=== PATIENT | female | born 1985 | race Two or more races ===

== ENCOUNTER 2022-10-24 11:07 | Outpatient (REF) | payer MEDICAID, OTHER, SELFPAY ==
[2022-10-24 15:02] LABS: Alanine Aminotransferase 14 U/L (0-31); Albumin Level 3.9 g/dL (3.5-5.0); Alkaline Phosphatase 44 U/L (39-117); Anion Gap 14 (12-20); Aspartate Amino Transferase 19 U/L (5-31); Bilirubin Total 0.5 mg/dL (0.0-1.0); Blood Urea Nitrogen 8 mg/dL (9-16); Calcium 8.7 mg/dL (8.4-10.2); Carbon Dioxide 22 mmol/L (22-29); Chloride 107 mmol/L (96-108); Cholesterol 260 mg/dL; Estimated Glomerular Filt Rate > 60; Glucose Random 85 mg/dL (60-115); HDL Cholesterol 76 mg/dL; LDL Cholesterol Calculated 164 mg/dl; Potassium 3.5 mmol/L (3.3-5.1); Sodium 139 mmol/L (135-145); Total Protein 7.1 g/dL (6.5-8.0); Triglycerides 103 mg/dL
[2022-10-24 16:06] LABS: TSH reflex Free T4 > 100.00 uIU/mL (0.32-4.0)
[2022-10-24 16:55] LABS: Free T4 (Free Thyroxine) < 0.42 ng/dL (0.71-1.85)
== END 2022-10-24 11:08 | disposition home or self-care (01) ==
LOC: HO.HHCL 11:07
PROVIDERS: Visit Provider Internal Medicine
DX: E89.0 Postprocedural hypothyroidism (principal); R73.01 Impaired fasting glucose
CPT/HCPCS: 36415; 80053; 80061; 84439; 84443

== ENCOUNTER 2022-12-22 09:30 | Outpatient (REF) | payer MEDICAID, OTHER, SELFPAY ==
[2022-12-22 14:33] LABS: MANUAL DIFF FLAG NO
[2022-12-22 14:44] LABS: Basophils Percent Auto 0.3 % (0-2); Eosinophils Absolute Auto 0.2 X10*3/uL (0.0-0.4); Eosinophils Percent Auto 2.5 % (0-4); Hematocrit 37.5 % (37.0-47.0); Hemoglobin 11.6 g/dl (12.0-16.0); Imm Gran Abs Auto 0.01 X10*3/uL (0.00-0.03); Imm Gran Pct Auto 0.2 % (0.0-0.4); Lymphocytes Percent Auto 30.4 % (20-40); Mean Corpuscular HGB Conc 30.9 g/dl (31.0-35.0); Mean Corpuscular Hemoglobin 28.7 pg (27.0-33.0); Mean Corpuscular Volume 92.8 fL (80.0-98.0); Mean Platelet Volume 10.6 fL (9.4-12.3); Monocytes Absolute Auto 0.6 X10*3/uL (0.1-1.2); Monocytes Percent Auto 9.5 % (2-11); Neutrophils Absolute Auto 3.7 x10*3/uL (2.0-8.3); Neutrophils Percent Auto 57.1 % (45-73); Platelet Count 311 X10*3/uL (160-400); Red Blood Count 4.04 X10*6/uL (4.20-5.50); Red Cell Distribution Width 13.2 % (11.0-16.0); White Blood Count 6.4 X10*3/uL (4.8-10.8)
[2022-12-22 14:57] LABS: Estimated Average Glucose 97 mg/dL
[2022-12-22 15:26] LABS: TSH reflex Free T4 0.31 uIU/mL (0.32-4.0); Vitamin D 25-OH Total 27.3 ng/mL (>30)
[2022-12-22 16:08] LABS: Free T4 (Free Thyroxine) 1.03 ng/dL (0.71-1.85)
== END 2022-12-22 09:31 | disposition home or self-care (01) ==
LOC: HO.CHCLDS 09:30
PROVIDERS: Visit Provider Pediatrics
DX: E89.0 Postprocedural hypothyroidism (principal); C73 Malignant neoplasm of thyroid gland; K90.9 Intestinal malabsorption, unspecified; R19.7 Diarrhea, unspecified
CPT/HCPCS: 36415; 82306; 83036; 84439; 84443; 85025

== ENCOUNTER 2023-03-24 16:43 | Outpatient (REF) | payer MEDICAID, OTHER, SELFPAY ==
--- NOTE | ~2023-03-24 | US_ITS ---
EXAMINATION: US PELVIS CLINICAL INFORMATION: Follow-up left ovarian cyst. COMPARISON: None available. TECHNIQUE: Ultrasound of the pelvis is performed using both transabdominal and transvaginal transducers along with Doppler. Transvaginal imaging is performed due to inadequate visualization transabdominally. FINDINGS: The uterus measures 8.9 x 5.4 x 5.4 cm. No discrete fibroids are appreciated. Possible cervical polyp measures 2.1 x 0.5 x 0.6 cm. No significant free fluid in the pelvis. Small amount of fluid within the endometrial cavity. Double wall endometrial thickness of 1.3 cm. Left ovary measures 2.0 x 1.7 x 1.9 cm, volume 3.4 mL and is unremarkable. Right ovary measures 2.6 x 2.0 x 2.4 cm, volume 6.5 mL. Right ovarian 1.3 x 1.1 x 1.0 cm complex cyst, possibly a corpus luteum. US/US pelvic and transvaginal IMPRESSION: 1. Possible cervical polyp measures 2.1 x 0.5 x 0.6 cm. 2. Right ovarian 1.3 cm complex cyst, possibly a corpus luteum. 3. Recommend follow-up ultrasound in 6-8 weeks. 4. Gynecologic consultation and correlation with menstrual history recommended to determine further management including possible biopsy. This study was presented Saturday, March 25, 2023 at 1:00 PM for interpretation. PSA staff will provide results to referring provider at this time.
== END 2023-03-24 16:44 | disposition home or self-care (01) ==
LOC: HO.US 16:43
PROVIDERS: PCP Pediatrics; Visit Provider Pediatrics
DX: N83.291 Other ovarian cyst, right side (principal)
CPT/HCPCS: 76830; 76856

== ENCOUNTER 2023-08-14 15:14 | Outpatient (REF) | payer MEDICAID, OTHER, SELFPAY ==
[2023-08-14 18:09] LABS: MANUAL DIFF FLAG NO
[2023-08-14 18:20] LABS: Basophils Percent Auto 0.3 % (0-2); Eosinophils Absolute Auto 0.2 X10*3/uL (0.0-0.4); Eosinophils Percent Auto 2.8 % (0-4); Hematocrit 36.4 % (37.0-47.0); Hemoglobin 11.9 g/dl (12.0-16.0); Imm Gran Abs Auto 0.02 X10*3/uL (0.00-0.03); Imm Gran Pct Auto 0.3 % (0.0-0.4); Lymphocytes Absolute Auto 2.4 X10*3/uL (1.2-4.9); Lymphocytes Percent Auto 31.7 % (20-40); Mean Corpuscular HGB Conc 32.7 g/dl (31.0-35.0); Mean Corpuscular Volume 88.6 fL (80.0-98.0); Mean Platelet Volume 10.2 fL (9.4-12.3); Monocytes Absolute Auto 0.5 X10*3/uL (0.1-1.2); Monocytes Percent Auto 7.2 % (2-11); Neutrophils Absolute Auto 4.3 x10*3/uL (2.0-8.3); Neutrophils Percent Auto 57.7 % (45-73); Platelet Count 299 X10*3/uL (160-400); Red Blood Count 4.11 X10*6/uL (4.20-5.50); Red Cell Distribution Width 13.4 % (11.0-16.0); White Blood Count 7.5 X10*3/uL (4.8-10.8)
[2023-08-14 18:28] LABS: Rheumatoid Factor < 13.0 IU/mL (<15.0)
[2023-08-14 18:34] LABS: Alanine Aminotransferase 13 U/L (0-31); Albumin Level 3.9 g/dL (3.5-5.0); Alkaline Phosphatase 49 U/L (39-117); Aspartate Amino Transferase 15 U/L (5-31); Bilirubin Direct 0.1 mg/dL (0.0-0.5); Bilirubin Total 0.3 mg/dL (0.0-1.0); C Reactive Protein 0.27 mg/dL (< or = 0.50); Total Protein 7.2 g/dL (6.5-8.0)
[2023-08-14 18:53] LABS: Thyroid Stimulating Hormone 1.09 uIU/mL (0.32-4.0)
[2023-08-14 19:31] LABS: Erythrocyte Sedimentation Rate 22 MM/HR (0-20)
[2023-08-15 09:40] LABS: Triiodothyronine T3 Total 97 ng/dL (76-181)
[2023-08-17 14:22] LABS: Anti Nuclear Antibody Screen NEGATIVE (NEGATIVE)
== END 2023-08-14 15:15 | disposition home or self-care (01) ==
LOC: HO.CHCLDS 15:14
PROVIDERS: Visit Provider Pediatrics
DX: C73 Malignant neoplasm of thyroid gland (principal); M25.50 Pain in unspecified joint
CPT/HCPCS: 36415; 80076; 84443; 84480; 85025; 85652; 86038; 86140; 86431

== ENCOUNTER 2024-11-24 09:49 | Outpatient (REF) | payer MEDICAID, OTHER, SELFPAY ==
--- NOTE | ~2024-11-24 | XR_ITS ---
EXAMINATION: XR SHOULDER, RIGHT CLINICAL INFORMATION: chronic R shoulder pain COMPARISON: None available. TECHNIQUE: AP external rotation, Grashey, scapular Y, and axillary views of the right shoulder. FINDINGS: Normal bone mineralization. No fracture, dislocation, or suspicious bone lesion. Normal alignment. The glenohumeral joint is normal. The AC joint is normal. There is a type II acromion. No undersurface spurring. The subacromial space is preserved. Remainder of the soft tissue and bony structures appear normal. XR/XR shoulder RT min 2V IMPRESSION: Normal right shoulder. Electronically signed by: Titi Aquino MD 11/24/2024 10:48 AM EDT
--- NOTE | ~2024-11-24 | XR_ITS ---
EXAMINATION: XR CERVICAL SPINE CLINICAL INFORMATION: chronic shoulder pain COMPARISON: None available. TECHNIQUE: 3 views of the cervical spine were obtained. FINDINGS: There are no prevertebral soft tissue or bony abnormalities demonstrated. No compression fractures or subluxations are identified. No endplate changes are seen. Alignment is maintained at the atlanto-axial articulation. The disc spaces are preserved. Normal facet alignment and appearance. The prevertebral soft tissues are normal. XR/XR cervical spine 3V IMPRESSION: Normal radiographs of the cervical spine. Electronically signed by: Titi Aquino MD 11/24/2024 10:49 AM EDT
--- OUTSIDE RECORDS SUMMARY | 2024-11-24 09:00 | XMS_ITS | Encounter Summary ---
Author Organization [employer] Address [address] [place] [address] [address] [place] [address] Care Team Providers Care Carport Erector Name Role Phone Chary Silva MD Primary Care Provider [phone] Reason for Referral * PFT (Routine) - Authorized Specialty Diagnoses / Procedures Referred By Kristen lambert Referred To Contact Diagnoses Childhood asthma, mild intermittent, uncomplicated Procedures Pulmonary Function Test Chary Silva MD [address] [place] [address] Phone: tel: fax: [address] Phone: tel: fax: Referral ID Status Reason Start Date Expiration Date V isits Requested Visits Authorized [id number] Authorized 11/24/2024 11/24/2025 1 1 Encounter Details Date Type Department Care Team (Late st Contact Info) Description 11/24/2024 9:00 AM EDT Office Visit [facility] CHC MED & PEDS [address] [place] [address] Chary Silva MD [address], [place] [id number] Chronic right shoulder pain (Primary Dx); Childhood asthma, mild intermittent, uncomplicated; Dietary counseling; Exercise counseling; Vitamin D deficiency; Thyroid cancer (CMS/HCC) Social History Tobacco Use Types Packs/Day Years Used Date Smoking Tobacco: Former Cigarettes Passive Smoke Exposure: Never Smokeless Tobacco: Never Alcohol Use Standard Drinks/Week Comments Defer 0 (1 standard drink = 0.6 oz pur e alcohol) Alcohol Answer Date Recorded Frequency of Alcohol Consumption Not on file 12/18/2022 Average Number of Drinks Not on file 023 Frequency of Binge Drinking Not on file 11/22 Score 0 12/18/2022 Depression Answer Date Recorded Patient Health Questionnaire-9 Score 6 11/24/2024 Patient Health Questionnaire-9 Score 6 11/24/2024 Last PHQ-9: Questionnaire Data Not on file 0 11/24/2024 Housing Stability Answer Date Recorded What is your housing situation today? I have renay hebert 11/24/[address] you li ve. Do you have problems with any of the following? None of the above 11/24/2024 Food Insecurity Answer Date Recorded Within the past 12 months, y ou worried that your food would run out before you got money to buy more: Sometimes True 2024 Within the past 12 months,th e food you bought just didn't last and you didn't have enough money to get more: Sometimes True 11/24/2024 Transportation Answer Date Recorded In the past 12 months, has l ack of transportation kept you from medical appts, meetings, work or from getting things needed for daily living? Yes, it has kept me from medical appointments or getting medications. 11/24/2024 Utilities Answer Date Recorded In the past 12 months, has t he electric, gas, oil or water company threatened to shut off services in your home? Yes 11/24/2024 Depression Answer Date Recorded Patient Health Questionnaire-2 Score 1 11/24/2024 Internet Access Answer Date Recorded Internet Access Q1 Yes 11/24/2024 Internet Access Q2 Not on file 11/24/2024 Comments No Sex and Gender Information Value Date Recorded Sex Assigned at Female 10/24/2022 9:31 AM EDT Legal Sex Female 9:27 AM EDT Gender Identity Female 10/24/2022 9:31 AM EDT Sexual Orientation Straight 10/24/2022 9: 31 AM EDT documented as of this encounter Last Filed Vital Signs Vital Sign Reading Time Taken Comments Blood Pressure 112/76 11/24/2024 8:48 AM EDT Pulse 76 11/24/2024 8:48 AM EDT Temperature 37.1 C (98.7 F) 11/24/2024 8:48 AM EDT Respiratory Rate 20 11/24/2024 8:48 AM EDT Oxygen Saturation - - Inhaled Oxygen Concentration - - Weight 84.8 kg (187 lb) 11/24/2024 8:48 AM EDT Height 165.1 cm (5' 5 ) 11/24/2024 8:48 AM EDT Body Mass Index 31.12 11/24/2024 8:48 AM EDT documented in this encounter Functional Status * Over the past 2 weeks, how often have you been bothered by any of the following problems? Question Answer Date of Assessment Author Patient Health Questionnaire-2 Score 1 06/2024 9:15 AM Betsy Gregory MA * Little interest or pleasure in doing things Answer Date of Assessment Author Several days 11/24/2024 9:15 AM Adenike Gregory MA * Feeling down, depressed, or hopeless Answer Date of Assessment Author Not at all 11/24/2024 9:15 AM Adenike Gregory MA * Trouble falling or staying asleep, or sleeping too much Answer Date of Assessment Author Several days 11/24/2024 9:15 AM Adenike Gregory MA * Feeling tired or having little energy Answer Date of Assessment Author Several days 11/24/2024 9:15 AM Adenike Gregory MA * Poor appetite or overeating Answer Date of Assessment Author Several days 11/24/2024 9:15 AM Adenike Gregory MA * Feeling bad about yourself - or that you are a failure or have let yourself or your family down Answer Date of Assessment Author Not at all 11/24/2024 9:15 AM Adenike Gregory MA * Trouble concentrating on things, such as reading the newspaper or watching television Answer Date of Assessment Author More than half the days 11/24/2024 9:15 AM LINDSEYT Betsy Washington MA * Moving or speaking so slowly that other people could have noticed? Or the opposite - being so fidgety or restless that you have been moving around a lot more than usual. Answer Date of Assessment Author Not at all 11/24/2024 9:15 AM Adenike Gregory MA * Thoughts that you would be better off or hurting yourself in some way Answer Date of Assessment Author Not at all 11/24/2024 9:15 AM EDT Adenike Solares MA * Patient Health Questionnaire-9 Score Answer Date of Assessment Author 6 11/24/2024 9:15 AM EDT Adenike Solares MA * How difficult have these problems made it for you to do your work, take care of things at home, or get along with other people? Answer Date of Assessment Author Not difficult at all 11/24/2024 9:15 AM EDT Betsy Cottrell MA documented as of this encounter Plan of Treatment Upcoming Encounters Date Type Department Care Team (Late st Contact Info) Description 03/06/2025 8:00 AM EST Office Visit [facility] CHC ADULT DENTAL [address] [facility] [place] [address] Ashley Gooden Scheduled Orders Name Type Priority Associated Diagnoses Orde r Schedule XR CERVICAL SPINE 3V Imaging Routine Chronic right shoulder pain Expected: 11/24/2024, Expires: 11/24/2025 XR Shoulder 2+ Views Right Imaging Routine Chronic right shoulder pain Expected: 11/24/2024, Expires: 11/24/2025 Pulmonary Function Test PFT Routine Childhood asthma, mild intermittent, uncomplicated Expected: 11/24/2024, Expires: 05/24/2025 documented as of this encounter Visit Diagnoses Diagnosis Chronic right shoulder pain- Primary Pain in joint, shoulder region Childhood asthma, mild intermittent, uncomplicated Dietary counseling Dietary surveillance and counseling Exercise counseling Vitamin D deficiency Thyroid cancer (CMS/HCC) Malignant neoplasm of thyroid gland documented in this encounter Additional Health Concerns Assessment Noted Time PHQ-9 Depression Total Score: 6 11/25/19 25 9:15 AM EDT documented as of this encounter Care Teams Carport Erector Relationship Specialty Start Date End Date Chary Silva MD [address] [place] [address] PCP - General Internal Medicine 12/18/22 documented as of this encounter
--- OUTSIDE RECORDS SUMMARY | 2024-11-24 10:46 | XMS_ITS | Clinical Summary ---
Author Organization [employer] Address [address] [facility] [address] [place] [address] Care Team Providers Care See Supervisor Name Role Phone Chary Silva MD Primary Care Provider [phone] Allergies No known active allergies Medications cholecalciferol (Vitamin D-3) 50 MCG (1999) capsule Take 1 capsule (50 mcg) by mouth Once per day. 30 capsule 11 08/13/19 24 Active Additional Information Patient not taking.Reported on 09/01/2024 Levonorgestrel 20 MCG/DAY intrauterine device 1 each by Intrauterine route 1 (one) time. Active levothyroxine (Synthroid, Levoxyl) 112 MCG tablet Take 1 tablet by mouth Once per day. 10/22/19 25 Active lidocaine-priloca ine (Emla) 2.5-2.5 % cream Apply topically bid to effected areas 30 g 2 11/25/19 25 Active meloxicam (Mobic) 7.5 MG tablet Take 1 tablet (7.5 mg) by mouth Once per day. 30 tablet 3 11/25/19 25 026 Active albuterol 108 (90 Base) MCG/ACT inhaler Inhale 2 puffs every 6 (six) hours if needed for wheezing. 18 g 1 11/25/19 25 026 Active cholestyramine (Questran) 4 g packetIndications :Diarrhea due to malabsorption Take 1 packet (4 g) by mouth with breakfast and with evening meal. 60 packet 3 12/19/19 23 025 Discontin ued(Thera py completed ) levothyroxine (Synthroid, Levoxyl) 125 MCG tablet TAKE 1 TABLET BY MOUTH BEFORE BREAKFAST 90 tablet 1 10/12/19 25 025 Discontin ued(Thera py completed ) Active Problems Problem Noted Date Diagnosed Date Hypocalcemia 10/22/2023 Vitamin D deficiency 02/05/2023 Postoperative hypothyroidism 10/24/2022 Assessment & Plan (10/24/2022 1:28 PM EDT): Restart Levothyroxine 75 mcg/d x 3d then increase to the regular dose of 150 mcg/d and fu with PCP Order labs today. PCP may need to obtain records form previous provider [place]. Thyroid cancer 10/24/2022 Assessment & Plan (10/24/2022 1:28 PM EDT): Sp thyroidectomy, will need to bring info re previous PCP records. Restart levothyroxine as above IFG (impaired fasting glucose) 10/24/2022 Assessment & Plan (10/24/2022 1:27 PM EDT): Order FBS, may need A1c by PCP if high. Counseled re more frequent low calorie/carb meals. Encouraged physical activity as tolerated. FU w PCP Recurrent major depressive disorder, in partial remission 10/24/2022 Assessment & Plan (10/24/2022 1:29 PM EDT): For few years no, was doing well on meds. Restart sertraline 25mg And fu w PCP to titrate up if tolerated. Declines referral to counselor. She feels safe at home and will call back or come to [facility] prn. Screening mammogram for breast cancer 10/24/2022 Assessment & Plan (10/24/2022 1:30 PM EDT): Mother has hx breast Ca. Order mammogram and fu w PCP Diarrhea due to malabsorption 10/24/2022 Assessment & Plan (10/24/2022 1:25 PM EDT): Sp [facility] few years ago Rx Cholestyramine 4mg bid ac meals, avoid fat foods. FU w PCP may need addtl w/u if not improving. Encounters Date Type Department Care Team Description 11/24/2024 9:00 AM EDT Office Visit [facility] CHC MED & PEDS [address] [place] [address] Chary Silva MD Chronic right shoulder pain (Primary Dx); Childhood asthma, mild intermittent, uncomplicated; Dietary counseling; Exercise counseling; Vitamin D deficiency; Thyroid cancer ([facility]) 11/24/2024 Travel 11/22/2024 Telephone [facility] MED & PEDS [address] [place] [address] Chary Silva MD Chart Prep 10/31/2024 Orders Only [facility] MED & PEDS [address] [place] [address] Minerva Yip MD 10/11/2024 Refill [facility] MED & PEDS [address] [place] [address] Chary Silva MD 09/15/2024 Orders Only [facility] [address] [place] [address] Minerva Yip MD 09/13/[address] [facility] MEDICINE [address] [place] [address] Chary Silva MD Medication Question 09/01/2024 8:00 AM EDT Office Visit [facility] ADULT DENTAL [address] [place] [address] Ashley Gooden from Last 3 Months Immunizations Immunization Administration Dates Next Due Influenza injectable quadrivalent preservative f ree 12/18/2022 Family History Medical History Relation Name Comments Breast cancer Mother Diabetes type II Mother htn Mother Relation Name Status Comments Mother Social History Tobacco Use Types Packs/Day Years Used Date Smoking Tobacco: Former Cigarettes Passive Smoke Exposure: Never Smokeless Tobacco: Never Tobacco Cessation:Counseling Given: Not Answered Alcohol Use Standard Drinks/Week Comments Defer 0 [...] Orientation Straight 10/24/2022 9: 31 AM EDT Last Filed Vital Signs Vital Sign Reading Time Taken Comments Blood Pressure 112/76 11/24/2024 8:48 AM EDT Pulse 76 11/24/2024 8:48 AM EDT Temperature 37.1 C (98.7 F) 11/24/2024 8:48 AM EDT Respiratory Rate 20 11/24/2024 8:48 AM EDT Oxygen Saturation 98% 12/18/2022 9:36 AM EDT Inhaled Oxygen Concentration - - Weight 84.8 kg (187 lb) 11/24/2024 8:48 AM EDT Height 165.1 cm (5' 5 ) 11/24/2024 8:48 AM EDT Body Mass Index 31.12 11/24/2024 8:48 AM EDT Plan of Treatment Upcoming Encounters Date Type Department Care Team (Late st Contact Info) Description 03/06/2025 8:00 AM EST Office Visit [facility] ADULT DENTAL [address] [place] [address] Ashley Gooden Health Maintenance Due Date Last Done Comments HIV Screening 1983 Family Planning (PISQ) 09/28/1998 HPV Vaccines (1 - 3-dose series) 09/28/1998 Hepatitis C Screening 09/28/2001 DTaP/Tdap/Td Vaccines (1 - Tdap) 09/28/2002 Hepatitis B Vaccines (1 of 3 - 19+ 3-dose series) 09/28/2002 Pneumococcal Vaccine: Pediatrics (0 to 5 Years) and At-Risk Patients (6 to 49) Years (1 of 2 - PCV) 09/28/2002 HPV/Cotest 09/28/2013 COVID-19 Vaccine ( - 2023-2 5 season) 2024 Influenza Vaccine (#1) 2024 12/18/2022 Dental Oral Exam 03/04/2025 09/01/2024, 03/03/2024 Dental Prophylaxis 03/04/2025 09/01/2024, 03/02/2024 Dental X-Ray: Bitewings 07/27/2025 07/27/19 25, 03/02/2024 Mammogram 10/21/2025 10/21/2024, 10/21/2024 Alcohol/Substance Use Screening 11/24/2025 11/24/2024 Depression Screening 11/24/2025 11/24/2024, 11/24/2024 Disability Screening 11/24/2025 11/24/2024 SDOH Screening 11/24/2025 11/24/2024 Tobacco Screening 11/24/2025 11/24/2024 Dental X-Ray: Full Mouth 03/03/2027 03/02/2024 Cervical Cancer Screening 09/16/2027 Pap Smear 09/16/2027 09/15/2024 Zoster Vaccines (1 of 2) 09/28/2033 RSV Patients and Patients Aged 60 years or older (1 - 1-dose 75+ series) 09/28/2058 HIB Vaccines Aged Out No longer eligi ble based on patient's age to complete this topic Hepatitis A Vaccines Aged Out No long er eligible based on patient's age to complete this topic IPV Vaccines Aged Out No longer eligi ble based on patient's age to complete this topic Meningococcal B Vaccine Aged Out No l onger eligible based on patient's age to complete this topic Meningococcal Vaccine Aged Out No rena saul eligible based on patient's age to complete this topic RSV under 20 months Aged Out No longe r eligible based on patient's age to complete this topic Rotavirus Vaccines Aged Out No longer eligible based on patient's age to complete this topic Procedures Procedure Name Priority Date/Time Associated Diagnosis Comments MAMMOGRAPHY Routine 10/21/2024 10:40 AM EDT PAP/HPV Routine 09/15/2024 CYTOLOGY, NON-CENTRAL OFFICE MAINTAINER Routine 09/08/2024 11: 30 AM EDT PERIODIC ORAL EVALUATION - ESTABLISHED PATIENT Routine 09/01/2024 8:00 AM EDT CASE PRESENTATION, DETAILED AND EXTENSIVE TREATMENT PLANNING Routine 09/01/2024 8:00 AM EDT ORAL HYGIENE INSTRUCTIONS Routine 09/01/2024 8:00 AM EDT PROPHYLAXIS - ADULT Routine 09/01/2024 8 :00 AM EDT BITEWING - SINGLE RADIOGRAPHIC IMAGE Routine 07/26/2024 1:00 PM EDT INTRAORAL - COMPLETE SERIES OF RADIOGRAPHIC IMAGES Routine 03/02/2024 8:00 AM EST from Last 3 Months or Most Recently Relevant to Health Maintenance Results * Mammography (10/21/2024 10:40 AM EDT) Anatomical Region Laterality Modality Other Historical Provider HEALTH MAINTENANCE Final Result * PAP/HPV (09/15/2024) Pap Smear 1. NILM 1. NILM Chary Silva MD HEALTH MAINTENANCE Final Resu lt * Cytology, Non-CENTRAL OFFICE MAINTAINER (09/08/2024 11:30 AM EDT) Historical Provider LAB CYTOLOGY ORDERABLES F inal Result from Last 3 Months Insurance [place] [employer] [facility] FULL [address] [place] [address] DENTAL-[facility] MEDICAID LIMITED ADULT DENTAL - HSN FULL (MEDICAID) Care Teams See Supervisor Relationship Specialty Start Date End Date Chary Silva MD [address] [place] [address] PCP - General Internal Medicine 12/18/22
--- OUTSIDE RECORDS SUMMARY | 2024-11-24 10:47 | XMS_ITS | Encounter Summary ---
Author Organization [employer] Address [address] [facility] [address] [place] [address] Care Team Providers Care Auto Garage Attendant Name Role Phone Chary Silva MD Primary Care Provider [phone] Encounter Details Date Type Department Care Team (Late st Contact Info) Description 09/15/2024 Orders Only [facility] [address] [place], [place] [phone] Provider, MD Minerva Social History Tobacco Use Types Packs/Day Years [...] Answer Date Recorded Patient Health Questionnaire-9 Score 1 08/13/2023 Patient Health Questionnaire-9 Score 1 08/13/2023 Last PHQ-9: Questionnaire Data Not on file 0 08/13/2023 Housing Stability Answer Date Recorded What is your housing situation today? I have renay hebert 01/09/[address] you li ve. Do you have problems with any of the following? None of the above 01/09/2023 Food Insecurity Answer Date Recorded Within the past 12 months, y ou worried that your food would run out before you got money to buy more: Sometimes True 2022 Within the past 12 months,th e food you bought just didn't last and you didn't have enough money to get more: Sometimes True 01/09/2023 Transportation Answer Date Recorded In the past 12 months, has l ack of transportation kept you from medical appts, meetings, work or from getting things needed for daily living? No 01/09/2023 Utilities Answer Date Recorded In the past 12 months, has t he electric, gas, oil or water company threatened to shut off services in your home? No 01/09/2023 Depression Answer Date Recorded Patient Health Questionnaire-2 Score 0 08/13/2023 Comments No Sex and Gender Information Value Date Recorded Sex Assigned at Female 10/24/2022 9:31 AM EDT Legal Sex Female 9:27 AM EDT Gender Identity Female 10/24/2022 9:31 AM EDT Sexual Orientation Straight 10/24/2022 9: 31 AM EDT documented as of this encounter Plan of Treatment Upcoming Encounters Date Type Department Care Team ([facility] st Contact Info) Description 03/06/2025 8:00 AM EST Office Visit [facility] ADULT DENTAL [address] [place] [address] Ashley Gooden documented as of this encounter Procedures Procedure Name Priority Date/Time Associated Diagnosis Comments CYTOLOGY, NON-SUPERVISOR HOSPITALITY HOUSE Routine 09/08/2024 11:30 AM EDT documented in this encounter Results * Cytology, Non-SUPERVISOR HOSPITALITY HOUSE (09/08/2024 11:30 AM EDT) us Historical Provider LAB CYTOLOGY ORDERABLES F inal Result documented in this encounter Visit Diagnoses Not on filedocumented in this encounter Additional Health Concerns Assessment Noted Time PHQ-9 Depression Total Score: 1 08/13/19 24 9:21 AM EDT documented as of this encounter Care Teams Auto Garage Attendant Relationship Specialty Start Date End Date Chary Silva MD [address] [place] [address] PCP - General Internal Medicine 12/18/22 documented as of this encounter
--- OUTSIDE RECORDS SUMMARY | 2024-11-24 10:47 | XMS_ITS | Encounter Summary ---
Author Organization [employer] Address [address] [place] [address] [address] [address] Care Team Providers Care Manufacturing Engineering Manager Name Role Phone Chary Silva MD Primary Care Provider [phone] Reason for Visit * Reason Onset Date Comments Chart Prep 11/22/2024 Encounter Details Date Type Department Care Team ([facility] Contact Info) Description 11/22/2024 Telephone [facility] CHC MED & PEDS [address] [place] [address] Chary Silva MD [address] [place] [address] Chart Prep Social History Tobacco Use Types Packs/Day Years [...] AM EDT documented as of this encounter Miscellaneous Notes * Telephone Encounter - Pennie Pro MA - 11/22/2024 11:12 AM EDT Chart Prep Labs: not applicable Images: not applicable Referrals: complete Vaccines due: Tdap, Hep B, and HPV Screenings: STI screening and LMP Overdue care gaps: SBIRT, SDOH, PHQ-9, Disability screen, and Tobacco documented in this encounter Plan of Treatment Upcoming Encounters Date Type Department Care Team ([facility] st Contact Info) Description 03/06/2025 8:00 AM EST Office Visit [facility] ADULT D[facility]AL [address] [facility] [place] [address] Ashley Gooden documented as of this encounter Visit Diagnoses Not on filedocumented in this encounter Additional Health Concerns Assessment Noted Time PHQ-9 Depression Total Score: 1 08/13/19 24 9:21 AM EDT documented as of this encounter Care Teams Manufacturing Engineering Manager Relationship Specialty Start Date End Date Chary Silva MD [address] [place] [address] PCP - General Internal Medicine 12/18/22 documented as of this encounter
--- OUTSIDE RECORDS SUMMARY | 2024-11-24 10:47 | XMS_ITS | Encounter Summary ---
Author Organization [employer] Address [address] [facility] [address] [place] [address] Care Team Providers Care Senior Contract Specialist Name Role Phone Chary Silva MD Primary Care Provider [phone] Reason for Visit * Reason Onset Date Comments rs no show 03/24/2024 Encounter Details Date Type Department Care Team ([facility] st Contact Info) Description 03/24/2024 Telephone [facility] ADULT DENTAL [address] [place], [place] [phone] Yaima Medina rs no show Social History Tobacco Use Types Packs/Day Years [...] encounter Miscellaneous Notes * Telephone Encounter - Roopa Morejon - 03/24/2024 8:16 AM EST Patient called in to rs no show visit on 03/24. Informed that after no show there is a waiting period to rs. I did inform patient that message will be sent to office to inform that she is looking to reschedule. Patient understood DR documented in this encounter Plan of Treatment Upcoming Encounters Date Type Department Care Team (Late st Contact Info) Description 03/06/2025 8:00 AM EST Office Visit [facility] ADULT DENTAL [address] [place] [address] Ashley Gooden documented as of this encounter Visit Diagnoses Not on filedocumented in this encounter Additional Health Concerns Assessment Noted Time PHQ-9 Depression Total Score: 1 08/13/19 24 9:21 AM EDT documented as of this encounter Care Teams Senior Contract Specialist Relationship Specialty Start Date End Date Chary Silva MD [address] [place] [address] PCP - General Internal Medicine 12/18/22 documented as of this encounter
--- OUTSIDE RECORDS SUMMARY | 2024-11-24 10:47 | XMS_ITS | Encounter Summary ---
Author Organization [email or web address] Address [address] [facility] [address] [place] [address] Care Team Providers Care Customer Account Executive Name Role Phone Chary Silva MD Primary Care Provider [phone] Reason for Visit * Reason Onset Date Comments Referral 03/31/2023 Encounter Details Date Type Department Care Team (Late st Contact Info) Description 03/31/2023 Telephone [facility] [address] [place] [address] Chary Silva MD [address] [place], [place] [id number] Referral Social History Tobacco Use Types Packs/Day Years Used Date Smoking Tobacco: Former Cigarettes Passive Smoke Exposure: Never Smokeless Tobacco: Never Alcohol Answer Date Recorded Frequency of Alcohol Consumption Not on file 12/18/2022 Average Number of Drinks Not on file 023 Frequency of Binge Drinking Not on file 11/22 Score 0 12/18/2022 Depression Answer Date Recorded Patient Health Questionnaire-9 Score 16 12/18/2022 Housing Stability Answer Date Recorded What is [...] Answer Date Recorded Patient Health Questionnaire-2 Score 3 12/18/2022 Comments No Sex and Gender Information Value Date Recorded Sex Assigned at Female 10/24/2022 9:31 AM EDT Legal Sex Female 9:27 AM EDT Gender Identity Female 10/24/2022 9:31 AM EDT Sexual Orientation Straight 10/24/2022 9: 31 AM EDT documented as of this encounter Miscellaneous Notes * Telephone Encounter - Daysi Zamora - 03/31/2023 1:15 PM EST Patient informed that her insurance is only accepted at [facility]. Patient understood and didn't have any other questions. * Telephone Encounter - Demetri Solares - 03/31/2023 11:00 AM EST Tc from patient calling in regards to the referral for SURGICAL [facility]ITTER states would like the referral to be sent to a closer location to the patients residence documented in this encounter Plan of Treatment Upcoming Encounters Date Type Department Care Team (Late st Contact Info) Description 03/06/2025 8:00 AM EST Office Visit [facility] [address] [place] [address] Ashley Gooden documented as of this encounter Visit Diagnoses Not on filedocumented in this encounter Additional Health Concerns Assessment Noted Time PHQ-9 Depression Total Score: 16 023 9:49 AM EDT documented as of this encounter Care Teams Customer Account Executive Relationship Specialty Start Date End Date Chary Silva MD [address] [place] [address] PCP - General Internal Medicine 12/18/22 documented as of this encounter
--- OUTSIDE RECORDS SUMMARY | 2024-11-24 10:47 | XMS_ITS | Clinical Summary ---
Author Organization [facility] Address [address] [place] [address] Care Team Providers Care Brasswind Instrument Repairer Name Role Phone Chary Silva Primary Care Provider [phone] Allergies No known active allergies Medications levonorgestreL (MIRENA) 21 mcg/24 hr (8 yrs) 52 mg 5 year intrauterine device 1 each by intrauterine route once. Use as directed. Active levothyroxine (SYNTHROID, LEVOTHROID) 112 mcg tabletIndications: Postoperative hypothyroidism Take 1 tablet (112 mcg total) by mouth once a day. 90 tablet 3 10/22/19 25 Active cholecalciferol (VITAMIN D3) 2,000 unit capsuleIndications :Vitamin D deficiency,Hypocal cemia Take 1 capsule (2,000 Units total) by mouth once a day. 90 capsule 3 10/22/19 25 Active Active Problems Problem Noted Date Diagnosed Date Hypocalcemia 10/22/2023 Vitamin D deficiency 02/05/2023 Diarrhea due to malabsorption 10/24/2022 Overview (02/05/2023): Last Assessment & Plan: Sp [facility] few years ago Rx Cholestyramine 4mg bid ac meals, avoid fat foods. FU w PCP may need addtl w/u if not improving. IFG (impaired fasting glucose) 10/24/2022 Overview (02/05/2023): Last Assessment & Plan: Order FBS, may need A1c by PCP if high. Counseled re more frequent low calorie/carb meals. Encouraged physical activity as tolerated. FU w PCP Postoperative hypothyroidism 10/24/2022 Overview (02/05/2023): Last Assessment & Plan: Restart Levothyroxine 75 mcg/d x 3d then increase to the regular dose of 150 mcg/d and fu with PCP Order labs today. PCP may need to obtain records form previous provider in [place]. Recurrent major depressive disorder, in partial remission 10/24/2022 Overview (02/05/2023): Last Assessment & Plan: For few years no, was doing well on meds. Restart sertraline 25mg And fu w PCP to titrate up if tolerated. Declines referral to counselor. She feels safe at home and will call back or come to [facility] prn. Thyroid cancer 10/24/2022 Overview (02/05/2023): Last Assessment & Plan: Michelle in [facility] 2020 Sp thyroidectomy, will need to bring info re previous PCP records. Restart levothyroxine as above Encounters Date Type Department Care Team Description 10/31/2024 Results Follow-Up [facility] Obstetrics and Gynecology [address] [place] [id number] Draw String Knotter: Allie Singh NP 10/21/2024 8:30 AM EDT Follow-Up [facility] [address] [place] [id number] Draw String Knotter: Alexa Lee NP Thyroid cancer (HCC) (Primary Dx); Postoperative hypothyroidism; Hypocalcemia; Vitamin D deficiency 10/21/2024 Orders Only [facility] [address] [place] [id number] Draw String Knotter: Alexa Lee NP Postoperative hypothyroidism (Primary Dx) 10/21/2024 Orders Only [facility] [address] [place] [id number] Draw String Knotter: Alexa Lee NP Hypocalcemia (Primary Dx); Vitamin D deficiency 10/21/2024 Results Follow-Up [facility] [address] [place] [address] Draw String Knotter: Alexa Lee NP 10/21/2024 Orders Only [facility] [address] [place] [id number] Draw String Knotter: Alexa Lee NP Postoperative hypothyroidism (Primary Dx) 09/08/2024 9:00 AM EDT Office Visit [facility] Obstetrics [facility] Gynecology [address] [place] [address] Draw String Knotter: Allie Singh NP Encounter for gynecological examination with abnormal finding (Primary Dx); Cervical cancer screening; Encounter for screening mammogram for malignant neoplasm of breast; Dysmenorrhea; Menorrhagia with regular cycle; IUD check up; Decreased libido 09/08/2024 Results Follow-Up [facility] Obstetrics and Gynecology [address] [place] [address] Draw String Knotter: Allie Singh NP from Last 3 Months Family History Medical History Relation Name Comments No Known Problems Child No Known Problems Cousin No Known Problems Daughter No Known Problems Father does not k now anything about father No Known Problems Grandchild No Known Problems Maternal Grandfather Colon cancer Maternal Grandmother Breast cancer Mother Breast cancer Mother's Sister No Known Problems Other No Known Problems Paternal Grandfather No Known Problems Paternal Grandmother No Known Problems Sister No Known Problems Son BRCA 1/2 Neg Hx Endometrial cancer Neg Hx Ovarian cancer Neg Hx Thyroid cancer Neg Hx Thyroid disease Neg Hx Uterine cancer Neg Hx Relation Name Status Comments Child Cousin Daughter Father Other Grandchild Maternal Grandfather Maternal Grandmother Mother Alive Mother's Sister Alive Other Paternal Grandfather Paternal Grandmother Sister Son Social History Tobacco Use Types Packs/Day Years Used Date Smoking Tobacco: Never Smokeless Tobacco: Never Tobacco Cessation:Counseling Given: Not Answered Alcohol Use Standard Drinks/Week Comments Yes 0 (1 standard drink = 0.6 oz pur e alcohol) rare/ social Comments No Sex and Gender Information Value Date Recorded Sex Assigned at Female 07/16/2023 3:51 PM EDT Legal Sex Female 11:44 AM EDT Gender Identity Female 09/03/2024 7:36 AM EDT Sexual Orientation Straight 09/03/2024 7: 36 AM EDT 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 Not on file Not on file Last Filed Vital Signs Vital Sign Reading Time Taken Comments Blood Pressure 106/69 10/21/2024 7:53 AM EDT Pulse 64 10/21/2024 7:53 AM EDT Temperature - - Respiratory Rate 16 10/21/2024 7:53 AM EDT Oxygen Saturation - - Inhaled Oxygen Concentration - - Weight 87.6 kg (193 lb 2 oz) 10/21/2024 7:53 AM EDT Height 166 cm (5' 5.35 ) 10/21/2024 7:53 AM EDT Body Mass Index 31.79 10/21/2024 7:53 AM EDT Plan of Treatment Upcoming Encounters Date Type Department Care Team (Late st Contact Info) Description 12/06/2024 9:30 AM EDT Appointment [address]th [place] [address] 12/06/2024 10:00 AM EDT Appointment [address]th [place] [address] 10/24/2025 8:00 AM EDT Follow-Up [facility] [address] [place] [phone] Draw String Knotter: Alexa Lee, GERALDINE [address] [place] [address] Health Maintenance Due Date Last Done Comments HIV Screening 1983 HPV and Pap Smear 1983 Hepatitis C Screening 1983 COVID-19 Vaccine (#1) 09/28/1988 Varicella Vaccines (1 of 2 - 13+ 2-dose series) 1996 Hepatitis B Vaccines (1 of 3 - 19+ 3-dose series) 11/2002 Pneumococcal Vaccine: Pediat gerry (0-5 Years) and At-Risk Patients (6-50 Years) (1 of 2 - PCV) 09/28/2002 DTaP,Tdap,and Td Vaccines (1 - Tdap) 09/28/2005 Alcohol/Substance Use Screening 03/23/2024 Depression Screening and Follow-Up 03/23/2024 Social Drivers of Health Annual Screening 03/23/2024 Influenza Vaccine (#1) 2024 12/18/2022 Diabetes Screening 10/24/2025 10/24/2022 Mammogram 10/21/2026 10/21/2024 Cervical Cancer Screening 09/09/2027 Pap Smear 09/09/2027 09/08/2024 RSV Vaccine (60+ years old a nd patients) (1 - 1-dose 75+ series) 09/28/2058 Procedures * Due to [place] state law, this organization might not be sharing negative HIV tests. Procedure Name Priority Date/Time Associated Diagnosis Comments BERYL BILATERAL SCREENING DIGITAL MAMMOGRAM WITH AKIL Routine 10/21/2024 9:45 AM EDT Encounter for screening mammogram for malignant neoplasm of breast T4, FREE Routine 10/21/2024 8:47 AM EDT Postoperative hypothyroidism TSH REFLEX FREE T4 Routine 10/21/2024 8: 47 AM EDT Postoperative hypothyroidism THYROGLOBULIN Routine 10/21/2024 8:47 AM EDT Thyroid cancer (HCC) THYROGLOBULIN ANTIBODY Routine 10/21/2024 8:47 AM EDT Thyroid cancer (HCC) ALBUMIN Routine 10/21/2024 8:47 AM EDT Hypocalcemia CALCIUM Routine 10/21/2024 8:47 AM EDT Hypocalcemia VITAMIN D, 25-HYDROXY, TOTAL, IMMUNOASSAY Routine 10/21/2024 8:47 AM EDT Hypocalcemia Vitamin D deficiency CREATININE Routine 10/21/2024 8:47 AM EDT Hypocalcemia T4, FREE Routine 09/08/2024 10:16 AM EDT Decreased libido TSH REFLEX FREE T4 Routine 09/08/2024 10 :16 AM EDT Decreased libido HPV SCREEN CYTOLOGY (HPV 16/18/45 GENOTYPING IF INDICATED) Routine 09/08/2024 9:55 AM EDT Cervical cancer screening PAP Routine 09/08/2024 9:55 AM EDT Cervical cancer screening PAP Routine 09/08/2024 9:55 AM EDT Cervical cancer screening from Last 3 Months Results * Due to [place] state law, this organization might not be sharing negative HIV tests. * (ABNORMAL) BERYL Bilateral Screening Digital Mammogram With Akil (10/21/2024 9:45 AM EDT) Anatomical Region Laterality Modality Breast Bilateral Mammography Narrative 10/28/2024 1:54 PM EDT Huma Pereyra Exam Date: 10/21/[address] [address] EXAMINATION BERYL Bilateral Screening Digital Mammogram With Akil. INDICATION Huma Pereyra is a 39 y.o. female and is seen for: screening. CC and MLO views were obtained. FDA approved exozet AI (artificial intelligence) software and R2 CAD were used as a concurrent reading aid in the interpretation of this study. COMPARISON Baseline. Bilateral Breast Findings: The breasts are heterogeneously dense, which may obscure small masses. There is an asymmetry in the upper right breast middle depth on MLO view. Otherwise, no significant masses, calcifications or other abnormalities are seen. IMPRESSION Right breast: Asymmetry in the upper right breast middle depth on MLO view. Further evaluation with diagnostic mammogram is recommended. Additionally, ultrasound may be required for any persistent abnormality. Left breast: No mammographic evidence of malignancy in the left breast. BI-RADS ATLAS category (left): 1 - Negative BI-RADS ATLAS category (right): 0 - Incomplete: Needs Additional Imaging Evaluation MANAGEMENT Routine Screening Mammogram in 1 Year is recommended for left Ultrasound is recommended for right Additional Projections is recommended for right. The patient was entered into a reminder system with a subsequent mammography target date. The patient s lifetime risk for breast cancer was calculated as: Tyrer-Cuzick: 25.93%. For high-risk women (life-time risk greater than 20%), regardless of breast density, supplemental screening with annual breast MRI is recommended in addition to annual mammography, ideally staggered at 6-month intervals. Women with dense breast tissue and lifetime risk less than 20% may also benefit from supplemental screening with breast MRI (Epic order M RI BREAST BILATERAL SCREENING W WO CONTRAST ) or automated breast ultrasound (Anonymous You order A BUS ) depending on risk factors. https://acsearch.acr.org/docs/1484879/Narrative/ TC score is not calculated for women with personal history of breast cancer or if age >80 years. If this radiology report contains a blank impression section, it is an incomplete radiology report. Please contact the interpreting radiologist or applicable radiology division as soon as possible to obtain the completed interpretation. Niesha Maldonado MD Resulting Agency Comment [id number] Allie Loja NP IMG BI PROCEDURES Final Result * (ABNORMAL) TSH Reflex Free T4 (10/21/2024 8:47 AM EDT) Only the most recent of2 resultswithin the time period is included. TSH 0.079(L) 0.280 - 3.890 uIU/mL 10/21/2024 10:16 AM EDT [facility] Comment: Females: 1st trimester 0.150-4.000 IU/mL 2nd trimester 0.310-4.170 IU/mL 3rd trimester 0.380-4.150 IU/mL Blood Structure of peripheral vein / Unknown Venipuncture / Unknown 10/21/2024 8:47 AM EDT 10/21/2024 9:28 AM EDT Patricia Apodaca EMISSION TECHNICIAN LAB BLOOD ORDERABLES Final Result [facility] [address] [place] [address], * (ABNORMAL) Vitamin D, 25-Hydroxy, Total, Immunoassay (10/21/2024 8:47 AM EDT) Calcidiol+ercalc idiol 23(L) 30 - 100 ng/mL 10/21/2024 9:20 PM EDT [facility] Comment: Vitamin D Status 25-OH Vitamin D: Deficiency: <20 ng/mL Insufficiency: 20 - 29 ng/mL Optimal: > or = 30 ng/mL For 25-OH Vitamin D testing on patients on D2-supplementation and patients for whom quantitation of D2 and D3 fractions is required, the QuestAssureD(TM) 25-OH VIT D, (D2,D3), LC/MS/MS is recommended: order code [id number] (patients >2yrs). See Note 1 Note 1 For additional information, please refer to http://education.Activism.com/faq/QCU518 (This link is being provided for informational/ educational purposes only.) Blood Structure of peripheral vein / Unknown Venipuncture / Unknown 10/21/2024 8:47 AM EDT 10/21/2024 9:28 AM EDT Narrative [facility] - 10/21/2024 9:20 PM EDT [facility] Received Date: Alexa Apodaca EMISSION TECHNICIAN LAB BLOOD ORDERABLES Final Result [facility] [address] [facility] 3rd Floor, [place] [address], [employer] [facility] [address] [facility] 3rd Floor, [place] [address], [place] [phone] * (ABNORMAL) Thyroglobulin (10/21/2024 8:47 AM EDT) Thyroglobulin <0.1(L) ng/mL 10/21/2024 9:57 PM EDT [facility] Comment: Reference Range: Intact Thyroid 2.8-40.9 Athyrotic <0.1 Note: Abnormal flagging is based on the reference interval for patients with intact thyroid. This test was performed using the [employer] [place] chemiluminescent method. Values obtained from different assay methods cannot be used interchangeably. Thyroglobulin levels, regardless of value, should not be interpreted as absolute evidence of the presence or absence of disease. Comment See Comments 10/21/2024 9:57 PM EDT [facility] Comment: Thyroglobulin antibodies (TGAB) interfere with thyroglobulin (TG) assays; therefore, TGAB assay should always be performed in conjunction with a TG assay. For additional information, please refer to http://education.Nipendo/faq/KDL959 (This link is being provided for informational/ educational purposes only.) Blood Structure of peripheral vein / Unknown Venipuncture / Unknown 10/21/2024 8:47 AM EDT 10/21/2024 9:28 AM EDT [facility] - 10/21/2024 9:57 PM EDT [employer] Received Date: us Alexa Apodaca EMISSION TECHNICIAN LAB BLOOD ORDERABLES Final Result [facility] HELVETIA [address] [facility] 3rd Floor, [place] [address], [employer] [address], [place] [address], * Thyroglobulin Antibody (10/21/2024 8:47 AM EDT) Thyroglobulin Antibodies 1 < or = 1 IU/mL 10/21/2024 10:02 PM EDT [employer] Blood Structure of peripheral vein / Unknown Venipuncture / Unknown 10/21/2024 8:47 AM EDT 10/21/2024 9:28 AM EDT [employer] [facility] - 10/21/2024 10:02 PM EDT [employer] Received Date: us Alexa Apodaca EMISSION TECHNICIAN LAB BLOOD ORDERABLES Final Result [facility] MIX [address] [facility] 3rd Floor, [place] [address], [place] [phone] [employer] [address], [place] [address], [place] [phone] * T4, Free (10/21/2024 8:47 AM EDT) Only the most recent of2 resultswithin the time period is included. Free T4 1.52 0.80 - 1.80 ng/dL 10/21/2024 10:59 AM EDT [facility] Comment: Females: (ng/dL) First Trimester 0.95-1.58 ng/dL Second Trimester 0.76-1.24 ng/dL Third Trimester 0.70-1.25 ng/dL Dietary supplements containing biotin may interfere in assays and may skew analyte results to be falsely high. For patients receiving the recommended daily doses of biotin, draw samples at least 8 hours following the last biotin supplementation. For patients on katherine-doses of biotin supplements, draw samples at least 72 hours following the last biotin supplementation. Effective 2024, Free T4 reference range (>=18 years old) is 0.8 - 1.8 ng/dL, replacing the previous range of 0.93 - 1.70 ng/dL. Blood Structure of peripheral vein / Unknown Venipuncture / Unknown 10/21/2024 8:47 AM EDT 10/21/2024 9:28 AM EDT Alexa Apodaca NP LAB BLOOD ORDERABLES Final Result [facility] [address] [place] [address], * Creatinine (10/21/2024 8:47 AM EDT) Creatinine 0.69 0.50 - 1.20 mg/dL 10/21/2024 10:16 AM EDT [facility] eGFR >90 >=60 mL/min/1. 73m2 10/21/2024 10:16 AM EDT [facility] Comment:The estimated glomer ular filtration rate (eGFR) is calculated using a new formula developed by the NKF-ASN task force to eliminate race-based correction factors. The new formula uses serum/plasma creatinine, age, and gender to determine eGFR. A value below 60mls/min might indicate kidney disease and will be flagged. For additional information, see Mavis et al, Am J Kidney Dis. 2021;79(2):268- 288, A Unifying Approach for GFR estimation: Recommendations of the NKF-ASN Task Force on Reassessing the Inclusion of Race in Diagnosing Kidney Disease . Blood Structure of peripheral vein / Unknown Venipuncture / Unknown 10/21/2024 8:47 AM EDT 10/21/2024 9:28 AM EDT Alexa Apodaca NP LAB BLOOD ORDERABLES Final Result [facility] [address] [place] [address], [place] * Calcium (10/21/2024 8:47 AM EDT) Calcium 9.1 8.6 - 10.5 mg/dL 10/21/2024 10:16 AM EDT [facility] Blood Structure of peripheral vein / Unknown Venipuncture / Unknown 10/21/2024 8:47 AM EDT 10/21/2024 9:28 AM EDT Alexa Apodaca NP LAB BLOOD ORDERABLES Final Result [facility] [address] [place] [address], [place] * Albumin (10/21/2024 8:47 AM EDT) Albumin 4.3 3.5 - 5.2 g/dL 10/21/2024 10:16 AM EDT [facility] Blood Structure of peripheral vein / Unknown Venipuncture / Unknown 10/21/2024 8:47 AM EDT 10/21/2024 9:28 AM EDT us Patricia Constanza EMISSION TECHNICIAN LAB BLOOD ORDERABLES Final Result [facility] [address] [place] [address], [place] * Pap (09/08/2024 9:55 AM EDT) Specimen Adequacy Satisfactory for evaluation [facility] MANUAL 5 2:38 PM EDT [facility] [facility] Pathologist Cytology Interpretation Negative for intraepithelial lesion or malignancy. [facility] MANUAL 5 2:38 PM EDT [facility] [employer] [facility] at 1438 EDT Comment:This is the result o f a morphological screening test with an inherent possibility of a false negative interpretation. Health Program Manager Statement This Pap test was examined by the ThinPrep Imaging System, [employer], [place], [place]. This Pap test was examined in accordance with the [facility] Cytopathology Laboratory written policy, which incorporates all CLIA mandates. Current screening guidelines can be found in [place]: A Cancer Journal for Clinicians 2020;70:321-346. Current ASCCP management guidelines for abnormal Pap tests are published in the Journal Lower Genital Tract Disease Volume 2020;24:102-131. [facility] MANUAL 5 2:38 PM EDT [facility] Clinical History Screening pap [facility] MANUAL 5 2:38 PM EDT [facility] [employer] [facility] Resulting Agency Case was signed out at [facility], Department of Pathology, [employer] 3 CLIA [id number] [facility] MANUAL 5 2:38 PM EDT [facility] [employer] [facility] Report Header Gynecologic Cytology Report Case: [id number] Authorizing Provider: Allie Loja NP Collected: 09/08/2024 0955 Ordering Location: [facility] Received: 09/08/2024 1150 [facility] Gynecology First Screen: Darrel Rosales Specimen: Screening ThinPrep Pap, Cervix/Endocervix 2:38 PM EDT [facility] Brushing Cervix uteri structure / Unknown Non-Blood Collection / Unknown 09/08/2024 9:55 AM EDT 09/08/2024 11:50 AM EDT us Allie Loja NP LAB PATHOLOGY/CYTOLOGY ORDERABL ES Final Result [facility] [address] [place] [id number], * HPV Screen Cytology (HPV 16/18/45 Genotyping if indicated) (09/08/2024 9:55 AM EDT) HPV High Risk DNA Subtypes Negative 09/14/2024 2:38 PM EDT [facility] Clinical History Screening pap [facility] MANUAL 09/14/2024 2:38 PM EDT [facility] Test Description The Aptima HPV assay is an in vitro nucleic acid amplification test for the qualitative detection of E6/E7 viral messenger RNA (mRNA) from 14 high-risk types of human papillomavirus (HPV) in cervical specimens. The high-risk HPV types detected by the assay include: 16, 18, 31, 33, 35, 39, 45, 51, 52, 56, 58, 59, 66, and 68. The Aptima HPV assay does not discriminate between the 14 high-risk types. Cervical specimens in ThinPrep Pap Test vials containing PreservCyt Solution and collected with broom-type or cytobrush/spatula collection devices* may be tested with the Aptima HPV assay. The assay is used with the QireS System or the Dayhoit System. High-risk subtypes of HPV are found in 96% of patients with high grade squamous intraepithelial lesions and cervical squamous cell carcinoma. Additional studies may be indicated in spite of a negative HPV test, e.g. in patients with a friable cervix or multiple previous abnormal pap tests. HPV testing is not recommended for managing patients with atypical glandular cells. Not all high-risk HPV infections are associated with a histologic or cytologic abnormality. We endorse the recommendations of the [place] Society for Colposcopy and Cervical Pathology for management of pap test results, available at www.asccp.org. ASCCP guidelines also recommend HPV 16/18 genotyping in patients over the age of 30 who have had positive high risk HPV testing: (J Low Genit Tract Dis 2020;24: 102-131). [employer] MANUAL 09/14/2024 2:38 PM EDT [facility] ASR Disclaimer The performance characteristics of this test have been validated by the Laboratory of Diagnostic Molecular Oncology. They have not been cleared or approved by the U.S. Food and Drug Administration (FDA). The FDA has determined that such clearance or approval is not necessary. The laboratory is certified under the Clinical Laboratory Improvement Amendments of 1988 (CLIA-88) as qualified to perform high complexity clinical laboratory testing. [employer] MANUAL 09/14/2024 2:38 PM EDT [facility] Brushing Cervix uteri structure / Unknown Non-Blood Collection / Unknown 09/08/2024 9:55 AM EDT 09/09/2024 8:41 AM EDT us Allie Loja NP LAB MOLECULAR ORDERABLES Final Result [facility] [address] [place] [id number], from Last 3 Months Insurance [employer] HSNO/FREE CARE Care Teams [employer] Instrument Repairer Relationship Specialty Start Date End Date Chary Silva [address] [place] [id number] PCP - General Internal Medicine 06/16/24
--- OUTSIDE RECORDS SUMMARY | 2024-11-24 10:47 | XMS_ITS | Encounter Summary ---
Author Organization [facility] Address [address] [place] [address] Care Team Providers Care Transformer Assembly Supervisor Name Role Phone Chary Silva Primary Care Provider [phone] Encounter Details Date Type Department Care Team (Late Contact Info) Description 10/31/2024 Results Follow-Up [facility] Obstetrics and Gynecology [address] [place] [address] Tumbling And Rolling Supervisor: Allie Singh NP [address] [place] [address] Social History Tobacco Use Types Packs/Day Years Used Date Smoking Tobacco: Never Smokeless Tobacco: Never Alcohol Use Standard Drinks/Week Comments Yes 0 [...] file Not on file Not on file documented as of this encounter Plan of Treatment Upcoming Encounters Date Type Department Care Team (Late Contact Info) Description 12/06/2024 9:30 AM EDT Appointment [address], 5th [place] [address] 12/06/2024 10:00 AM EDT Appointment [address], 5th [place] [address] 10/24/2025 8:00 AM EDT Follow-Up [facility] [address] [place] [address] Tumbling And Rolling Supervisor: Alexa Lee NP [address] [place] [address] documented as of this encounter Visit Diagnoses Not on filedocumented in this encounter Care Teams Transformer Assembly Supervisor Relationship Specialty Start Date End Date Chary Silva [address] [place] [address] PCP - General Internal Medicine 06/16/24 documented as of this encounter
--- OUTSIDE RECORDS SUMMARY | 2024-11-24 10:47 | XMS_ITS | Encounter Summary ---
Author Organization [employer] Address [address] [facility] 7t [place] [address] Care Team Providers Care Physical Security Specialist Name Role Phone Chary Silva MD Primary Care Provider [phone] Encounter Details Date Type Department Care Team ([facility] st Contact Info) Description 10/31/2024 Orders Only [facility] CHC MED & PEDS [address] [place], [place] [id number] Provider, MD Minerva Social History Tobacco Use [...] Upcoming Encounters Date Type Department Care Team ([facility] st Contact Info) Description 03/06/2025 8:00 AM EST Office Visit [facility] ADULT DENTAL [address] [place] [address] Ashley Gooden documented as of this encounter Procedures Procedure Name Priority Date/Time Associated Diagnosis Comments HM MAMMOGRAPHY Routine 10/21/2024 10:40 AM EDT documented in this encounter Results * Hm Mammography (10/21/2024 10:40 AM EDT) Anatomical Region Laterality Modality Other us Historical Provider HEALTH MAINTENANCE Final Result documented in this encounter Visit Diagnoses Not on filedocumented in this encounter Additional Health Concerns Assessment Noted Time PHQ-9 Depression Total Score: 1 08/13/19 24 9:21 AM EDT documented as of this encounter Care Teams Physical Security Specialist Relationship Specialty Start Date End Date Chary Silva MD [address] [place] [address] PCP - General Internal Medicine 12/18/22 documented as of this encounter
--- OUTSIDE RECORDS SUMMARY | 2024-11-24 10:47 | XMS_ITS | Encounter Summary ---
Author Organization [facility] Address [address] [place] [address] Care Team Providers Care Printed Circuit Boards Stripper Etcher Name Role Phone Chary Silva Primary Care Provider [phone] Encounter Details Date Type Department Care Team (Late Contact Info) Description 10/21/2024 Results Follow-Up [facility] [address] [place] [address] Supervisor Quilting: Alexa Lee, GERALDINE [address] [place] [address] Social History Tobacco Use Types Packs/Day Years [...] Info) Description 12/06/2024 9:30 AM EDT Appointment [address], 5th [place] [address] 12/06/2024 10:00 AM EDT Appointment [address] 5th [place] [address] 10/24/2025 8:00 AM EDT Follow-Up [facility] [address] [place] [address] Supervisor Quilting: Alexa Lee NP [address] [place] [address] documented as of this encounter Visit Diagnoses Not on filedocumented in this encounter Care Teams Printed Circuit Boards Stripper Etcher Relationship Specialty Start Date End Date Chary Silva [address] [place] [address] PCP - General Internal Medicine 06/16/24 documented as of this encounter
--- OUTSIDE RECORDS SUMMARY | 2024-11-24 10:47 | XMS_ITS | Encounter Summary ---
Author Organization [employer] Address [address] [facility] 7t [place] [address] Care Team Providers Care Scientific Associate Name Role Phone Chary Silva MD Primary Care Provider [phone] Encounter Details Date Type Department Care Team (Latest Contact Info) Description 11/24/2024 Travel Social History Tobacco Use Types Packs/Day Years [...] AM EDT documented as of this encounter Functional Status * Over the past 2 weeks, how often have you been bothered by any of the following problems? Question Answer Date of Assessment Author Patient Health Questionnaire-2 Score 1 06/2024 9:15 AM LINDSEYT Betsy Solares [place] * Little interest or pleasure in doing things Answer Date of Assessment Author Several days 11/24/2024 9:15 AM EDT Adenike Solares [place] * Feeling down, depressed, or hopeless [...] than half the days 11/24/2024 9:15 AM EDT Betsy [place] * Moving or speaking so slowly that other people could have noticed? Or the opposite - being so fidgety or restless that you have been moving around a lot more than usual. Answer Date of Assessment Author Not at all 11/24/2024 9:15 AM EDT Adenike Solares [place] * Thoughts that you would be [...] Description 03/06/2025 8:00 AM EST Office Visit [facility] CHC ADULT DENTAL [address] [place] [address] Ashley Gooden documented as of this encounter Visit Diagnoses Not on filedocumented in this encounter Additional Health Concerns Assessment Noted Time PHQ-9 Depression Total Score: 6 11/25/19 25 9:15 AM EDT documented as of this encounter Care Teams Scientific Associate Relationship Specialty Start Date End Date Chary Silva MD [address] [place] [address] PCP - General Internal Medicine 12/18/22 documented as of this encounter
== END 2024-11-24 09:50 | disposition home or self-care (01) ==
LOC: HO.HHCX 09:49
PROVIDERS: PCP Pediatrics; Visit Provider Pediatrics
DX: M25.511 Pain in right shoulder (principal); G89.29 Other chronic pain
CPT/HCPCS: 72040; 73030

== ENCOUNTER → 2024-11-24 09:57 | Outpatient (BNV) | payer MEDICAID, SELFPAY | PROVIDERS: PCP Pediatrics; Visit Provider Radiology Diagnostic Radiology | DX: M25.511 Pain in right shoulder (principal) | CPT/HCPCS: 72040; 73030 ==

== ENCOUNTER 2025-01-25 10:03 | Outpatient (REF) | payer MEDICAID, OTHER, SELFPAY ==
--- OUTSIDE RECORDS SUMMARY | 2025-01-25 11:35 | XMS_ITS | Encounter Summary ---
Author Organization [employer] Address [address] [facility] 7t [place] [address] Care Team Providers Care Computer Terminal Operator Name Role Phone Chary Silva MD Primary Care Provider [phone] Reason for Visit * Reason Onset Date Comments Referral 03/31/2023 Encounter Details Date Type Department Care Team (Late st Contact Info) Description 03/31/2023 Telephone [facility] MEDICINE [address] [place] [address] Chary Silva MD [address] [place], [place] [phone] Referral Social History Tobacco Use Types Packs/Day [...] that her insurance is only accepted at [facility]. Patient understood and didn't have any other questions. * Telephone Encounter - Demetri Solares - 03/31/2023 11:00 AM EST Tc from patient calling in regards to the referral for SHARED SERVICES REPRESENTATIVE states would like the referral to be sent to a closer location to the patients residence documented in this encounter Plan of Treatment Upcoming Encounters Date Type Department Care Team (Late st Contact Info) Description 03/06/2025 8:00 AM EST Office Visit [facility] ADULT DENTAL [address] [place] [address] Jesus Ladd documented as of this encounter Visit Diagnoses Not on filedocumented in this encounter Additional Health Concerns Assessment Noted Time PHQ-9 Depression Total Score: 16 12/18/2 023 9:49 AM EDT documented as of this encounter Care Teams Computer Terminal Operator Relationship Specialty Start Date End Date Chary Silva MD [address] [place] [address] PCP - General Internal Medicine 12/18/22 documented as of this encounter
--- OUTSIDE RECORDS SUMMARY | 2025-01-25 11:35 | XMS_ITS | Encounter Summary ---
Author Organization [employer] Address [address] [facility] 7t [place] [address] Care Team Providers Care Burner Hand Name Role Phone Chary Silva MD Primary Care Provider [phone] Encounter Details Date Type Department Care Team (Late st Contact Info) Description 09/15/2024 Orders Only [facility] [address] [place], [place] [phone] Provider, MD Minerva Social History Tobacco Use [...] Upcoming Encounters Date Type Department Care Team ([facility] st Contact Info) Description 03/06/2025 8:00 AM EST Office Visit [facility] ADULT DENTAL [address] [place] [address] Jesus Ladd documented as of this encounter Procedures Procedure Name Priority Date/Time Associated Diagnosis Comments CYTOLOGY, NON-CARPENTER SHIP Routine 09/08/2024 11:30 AM EDT documented in this encounter Results * Cytology, Non-CARPENTER SHIP (09/08/2024 11:30 AM EDT) us Historical Provider LAB CYTOLOGY ORDERABLES F inal Result documented in this encounter Visit Diagnoses Not on filedocumented in this encounter Additional Health Concerns Assessment Noted Time PHQ-9 Depression Total Score: 1 08/13/19 24 9:21 AM EDT documented as of this encounter Care Teams Burner Hand Relationship Specialty Start Date End Date Chary Silva MD [address] [place] [address] PCP - General Internal Medicine 12/18/22 documented as of this encounter
--- OUTSIDE RECORDS SUMMARY | 2025-01-25 11:35 | XMS_ITS | Clinical Summary ---
Author Organization [employer] Address [address] [place] [address] 7t [place] [address] Care Team Providers Care Bicycle Taxi Driver Name Role Phone Chary Silva MD Primary Care Provider [phone] Allergies No known active allergies Medications cholecalciferol (Vitamin D-3) 50 MCG (1999) capsule Take 1 capsule (50 mcg) by mouth Once per day. 30 capsule 11 4 Active Additional Information Patient not taking.Reported on 09/01/2024 Levonorgestrel 20 MCG/DAY intrauterine device 1 each by Intrauterine route 1 (one) time. Active levothyroxine (Synthroid, Levoxyl) 112 MCG tablet Take 1 tablet by mouth Once per day. 5 Active lidocaine-priloc cindi (Emla) 2.5-2.5 % cream Apply topically bid to effected areas 30 g 2 5 Active meloxicam (Mobic) 7.5 MG tablet Take 1 tablet (7.5 mg) by mouth Once per day. 30 tablet 3 5 026 Active albuterol 108 (90 Base) MCG/ACT inhaler Inhale 2 puffs every 6 (six) hours if needed for wheezing. 18 g 1 5 026 Active Active Problems Problem Noted Date Diagnosed Date Hypocalcemia 10/22/2023 Vitamin D deficiency 02/05/2023 Postoperative hypothyroidism 10/24/2022 Assessment & Plan (10/24/2022 1:28 PM EDT): Restart Levothyroxine 75 mcg/d x 3d then increase to the regular dose of 150 mcg/d and fu with PCP Order labs today. PCP may need to obtain records form previous provider in [place]. Thyroid cancer (CMS/HCC) 10/24/2022 Assessment & Plan (10/24/2022 1:28 PM [...] and will call back or come to [facility] prn. Screening mammogram for breast cancer [...] Description 11/24/2024 9:00 AM EDT Office Visit [facility] CHC MED & PEDS [address] [place] [address] Chary Silva MD Chronic right shoulder pain (Primary Dx); Childhood asthma, mild intermittent, uncomplicated; Dietary counseling; Exercise counseling; Vitamin D deficiency; Thyroid cancer (CMS/HCC) 11/24/2024 Patient Outreach [facility] MEDICINE [address] [place] [address] Chary Silva MD Care Coordination (C3 [facility] Millicent Deepak telephone call); Bronchitis 11/24/2024 Travel 11/22/2024 Telephone [facility] MED & PEDS [address] [place] [address] Chary Silva MD Chart Prep 10/31/2024 Orders Only [facility] MED & PEDS [address] [place] [address] Provider, MD Minerva from Last 3 Months Immunizations Immunization Administration [...] your housing situation today? I have renay sing 11/24/[address] you li [...] Description 03/06/2025 8:00 AM EST Office Visit [facility] ADULT DENTAL [address] [place] [address] Jesus Ladd Health Maintenance Due Date Last Done Comments [...] - PCV) 09/28/2002 HPV/Cotest 09/28/2013 COVID-19 Vaccine (1 - 2024-2 5 season) 2024 Influenza Vaccine (#1) 2024 12/18/2022 Dental Oral Exam 03/04/2025 09/01/2024, 03/03/2024 Dental Prophylaxis 03/04/2025 09/01/2024, 03/02/2024 Dental X-Ray: Bitewings 07/27/2025 07/27/19, 03/02/2024 Mammogram 10/21/2025 10/21/2024, 10/21/2024 Alcohol/Substance Use [...] Procedure Name Priority Date/Time Associated Diagnosis Comments XR CERVICAL SPINE 3V Routine 11/24/2024 9:28 AM EDT Chronic right shoulder pain XR SHOULDER 2+ VIEWS RIGHT Routine 11/24/2024 9:21 AM EDT Chronic right shoulder pain HM MAMMOGRAPHY Routine 10/21/2024 10:40 AM EDT PAP/HPV Routine 09/15/2024 PROPHYLAXIS - ADULT Routine 09/01/2024 8 :00 AM EDT PERIODIC ORAL EVALUATION - ESTABLISHED PATIENT Routine 09/01/2024 8:00 AM EDT BITEWING - SINGLE RADIOGRAPHIC IMAGE Routine 07/26/2024 1:00 PM EDT INTRAORAL - COMPLETE SERIES OF RADIOGRAPHIC IMAGES Routine 03/02/2024 8:00 AM EST from Last 3 Months or Most Recently Relevant to Health Maintenance Results * XR CERVICAL SPINE 3V (11/24/2024 9:28 AM EDT) Anatomical Region Laterality Modality Abdomen Radiographic Greta ging 11/24/2024 9:28 AM EDT Narrative 11/24/2024 10:52 [place] [address] XRay Report Signed Patient: Huma Jones MR# : [id number] : 1985 Acct:[id number] Age/Sex: 39 / F ADM Date: 11/24/24 Loc: HO.HHCX Attending Dr: Chary Silva MD Ordering Physician: Chary Silva MD Date of Service: 11/24/24 Procedure(s): XR cervical spine 3V Accession Number(s): [id number] cc: Chary Silva MD Reason for Exam: chronic shoulder pain EXAMINATION: XR CERVICAL SPINE CLINICAL INFORMATION: chronic shoulder pain COMPARISON: None available. TECHNIQUE: 3 views of the cervical spine were obtained. FINDINGS: There are no prevertebral soft tissue or bony abnormalities demonstrated. No compression fractures or subluxations are identified. No endplate changes are seen. Alignment is maintained at the atlanto-axial articulation. The disc spaces are preserved. Normal facet alignment and appearance. The prevertebral soft tissues are normal. XR/XR cervical spine 3V IMPRESSION: Normal radiographs of the cervical spine. Electronically signed by: Titi Aquino MD 11/24/2024 10:49 AM EDT Dictated By: Titi Aquino MD Signed By: <Electronically signed by Titi Aquino MD in OV> 11/24/24 1049 DD/ 7 TD/TT: 11/24/[address] French Comber: Procedure Note Kennethter, Image - 11/24/[address] [address] XRay Report Signed Patient: Corazon JonesR# : [id number] : 1985Acct:[id number] Age/Sex: 39 / FADM Date: 11/24/24 Loc: HO.HHCX Attending Dr: Chary Silva MD Ordering Physician: Chary Silva MD Date of Service: 11/24/24 Procedure(s): XR cervical spine 3V Accession Number(s): [id number] cc: Chary Silva MD Reason for Exam: chronic shoulder pain EXAMINATION: XR CERVICAL SPINE CLINICAL INFORMATION: chronic shoulder pain COMPARISON: None available. TECHNIQUE: 3 views of the cervical spine were obtained. FINDINGS: There are no prevertebral soft tissue or bony abnormalities demonstrated. No compression fractures or subluxations are identified. No endplate changes are seen. Alignment is maintained at the atlanto-axial articulation. The disc spaces are preserved. Normal facet alignment and appearance. The prevertebral soft tissues are normal. XR/XR cervical spine 3V IMPRESSION: Normal radiographs of the cervical spine. Electronically signed by: Titi Aquino MD 11/24/2024 10:49 AM EDT Dictated By: Titi Aquino MD Signed By: <Electronically signed by Titi Aquino MD in OV> 11/24/24 1049 DD/ 7 TD/TT: 11/24/249[address] French Comber: us Chary Silva MD IMG XR PROCEDURES Final Resul t * XR Shoulder 2+ Views Right (11/24/2024 9:21 AM EDT) Anatomical Region Laterality Modality Upper Extremities, Shoulder Right Radi ographic Imaging 11/24/2024 9:21 AM EDT Narrative 11/24/2024 10:51 AM EDT [address] [address] XRay Report Signed Patient: Huma Jones MR# : [id number] : 1985 Acct:[id number] Age/Sex: 39 / F ADM Date: 11/24/24 Loc: HO.HHCX Attending Dr: Chary Silva MD Ordering Physician: Chary Silva MD Date of Service: 11/24/24 Procedure(s): XR shoulder RT min 2V Accession Number(s): [id number] cc: Chary Silva MD Reason for Exam: chronic R shoulder pain EXAMINATION: XR SHOULDER, RIGHT CLINICAL INFORMATION: chronic R shoulder pain COMPARISON: None available. TECHNIQUE: AP external rotation, Grashey, scapular Y, and axillary views of the right shoulder. FINDINGS: Normal bone mineralization. No fracture, dislocation, or suspicious bone lesion. Normal alignment. The glenohumeral joint is normal. The AC joint is normal. There is a type II acromion. No undersurface spurring. The subacromial space is preserved. Remainder of the soft tissue and bony structures appear normal. XR/XR shoulder RT min 2V IMPRESSION: Normal right shoulder. Electronically signed by: Titi Aquino MD 11/24/2024 10:48 AM EDT Dictated By: Titi Aquino MD Signed By: <Electronically signed by Titi Aquino MD in OV> 11/24/24 1048 DD/ 0921 TD/TT: 11/24/24 09 French Comber: Procedure Note Donotuseinterpreter, Image - 11/24/[address] [address] XRay Report Signed Patient: Corazon JonesR# : [id number] : 1985Acct:[id number] Age/Sex: 39 / FADM Date: 11/24/24 Loc: HO.HHCX Attending Dr: Chary Silva MD Ordering Physician: Chary Silva MD Date of Service: 11/24/24 Procedure(s): XR shoulder RT min 2V Accession Number(s): [id number] cc: Chary Silva MD Reason for Exam: chronic R shoulder pain EXAMINATION: XR SHOULDER, RIGHT CLINICAL INFORMATION: chronic R shoulder pain COMPARISON: None available. TECHNIQUE: AP external rotation, Grashey, scapular Y, and axillary views of the right shoulder. FINDINGS: Normal bone mineralization. No fracture, dislocation, or suspicious bone lesion. Normal alignment. The glenohumeral joint is normal. The AC joint is normal. There is a type II acromion. No undersurface spurring. The subacromial space is preserved. Remainder of the soft tissue and bony structures appear normal. XR/XR shoulder RT min 2V IMPRESSION: Normal right shoulder. Electronically signed by: Titi Aquino MD 11/24/2024 10:48 AM EDT Dictated By: Titi Aquino MD Signed By: <Electronically signed by Titi Aquino MD in OV> 11/24/24 1048 DD/ 0921 TD/TT: 11/24/24 0930 French Comber: Chary Silva MD IMG XR PROCEDURES Final Resul t * Hm Mammography (10/21/2024 10:40 AM EDT) Anatomical Region Laterality Modality Other Historical Provider HEALTH MAINTENANCE Final Result * PAP/HPV (09/15/2024) Pap Smear 1. NILM 1. NILM us Chary Silva MD HEALTH MAINTENANCE Final Resu lt from Last 3 Months or Most Recently Relevant to Health Maintenance Insurance [place] F[place] D[facility]-[facility] MEDICAID LIMITED ADULT DENTAL - HSN FULL (MEDICAID) Care Teams Bicycle Taxi Driver Relationship Specialty Start Date End Date Chary Silva MD [address] [place] [address] PCP - General Internal Medicine 12/18/22
--- OUTSIDE RECORDS SUMMARY | 2025-01-25 11:35 | XMS_ITS | Encounter Summary ---
Author Organization [facility] Address [address] [place] [address] Care Team Providers Care Starchmaker Name Role Phone Chary Silva Primary Care Provider [phone] Encounter Details Date Type Department Care Team ([facility] Contact Info) Description 12/07/2024 Results Follow-Up [facility] Obstetrics and Gynecology [address] [place] [address] Stunt Performer: Allie Singh NP [address] [place] [address] Social History Tobacco Use Types Packs/Day Years [...] Department Care Team (Late Contact Info) Description 10/24/2025 8:00 AM EDT Follow-Up [facility] Endocrinology Clinic [address] [place] [address] Stunt Performer: Alexa Lee NP [address] [place] [phone] documented as of this encounter Visit Diagnoses Not on filedocumented in this encounter Care Teams Starchmaker Relationship Specialty Start Date End Date Chary Silva [address] [place] [address] PCP - General Internal Medicine 06/16/24 documented as of this encounter
--- OUTSIDE RECORDS SUMMARY | 2025-01-25 11:35 | XMS_ITS | Clinical Summary ---
Author Organization [facility] Address [address] [place] [address] Care Team Providers Care Cutter Finisher Name Role Phone Chary Silva Primary Care Provider [phone] Allergies No known active allergies Medications levonorgestreL [...] to obtain records form previous provider in [place]. Recurrent major depressive disorder, in partial remission 10/24/2022 Overview (02/05/2023): Last Assessment & Plan: For few years no, was doing well on meds. Restart sertraline 25mg And fu w PCP to titrate up if tolerated. Declines referral to counselor. She feels safe at home and will call back or come to [facility] prn. Thyroid cancer 10/24/2022 Overview (02/05/2023): Last Assessment & Plan: Hemantkarl in [facility] 2020 Sp thyroidectomy, will need to bring info re previous PCP records. Restart levothyroxine as above Encounters Date Type Department Care Team Description 12/07/2024 Results Follow-Up [facility] Obstetrics and Gynecology [address] [place] [address] Attraction Attendant: Allie Singh NP 10/31/2024 Results Follow-Up [facility] Obstetrics and Gynecology [address] [place] [address] Attraction Attendant: Allie Singh NP from Last 3 Months [...] Care Team (Late st Contact Info) Description 10/24/2025 8:00 AM EDT Follow-Up [facility] [address] [place] [address] Attraction Attendant: Alexa Lee, GERALDINE [address] [place], [place] [id number] Health Maintenance Due Date Last Done Comments HIV Screening 1983 HPV and Pap Smear 1983 Hepatitis C Screening 1983 COVID-19 Vaccine (#1) 09/28/1988 Varicella Vaccines (1 of 2 - 13+ 2-dose series) 09/28/1996 Hepatitis B Vaccines (1 of 3 - 19+ 3-dose series) 09/28/2002 Pneumococcal Vaccine: Pediat gerry (0-5 Years) and At-Risk Patients (6-50 Years) (1 of 2 - PCV) 09/28/2002 DTaP,Tdap,and Td Vaccines (1 - Tdap) 09/28/2005 Alcohol/Substance Use Screening 03/23/2024 Depression Screening and Follow-Up 03/23/2024 Social Drivers of Health Gloria ual Screening 03/23/2024 Influenza Vaccine (#1) 2024 12/18/2022 Diabetes Screening 10/24/2025 10/24/2022 Mammogram 12/06/2026 12/06/2024, 11/21, 10/21/2024 Cervical Cancer Screening 09/09/2027 Pap Smear 09/09/2027 09/08/2024 Procedures * Due to [place] [employer] law, this organization might not be sharing negative HIV tests. Procedure Name Priority Date/Time Associated Diagnosis Comments US BREAST LIMITED RIGHT Routine 12/06/2024 9:51 AM EDT Breast asymmetry BERYL RIGHT ADD VIEWS DIGITAL MAMMO AND AKIL Routine 12/06/2024 9:22 AM EDT Breast asymmetry PAP Routine 09/08/2024 9:55 AM EDT Cervical cancer screening from Last 3 Months or Most Recently Relevant to Health Maintenance Results * Due to [place] [employer] law, this organization might not be sharing negative HIV tests. * US Breast Limited Right (12/06/2024 9:51 AM EDT) Anatomical Region Laterality Modality Breast Right Ultrasound Narrative 12/06/2024 1:35 PM EDT Huma Pereyra Exam Date: 12/06/24 [facility] [address] [place] [address], 5th floor [place], [place] [address] INDICATIONS Callback from screening for additional views of upper right breast middle depth MLO asymmetry. TECHNIQUE BERYL Right Add Views Digital Mammo and Akil US Breast Limited Right. R2 CAD were used in the interpretation of this study. COMPARISON Compared to: 10/21/2024 BERYL Bilateral Screening Digital Mammogram With Akil FINDINGS [facility] Right Add Views Digital Mammo and Akil The breasts are heterogeneously dense, which may obscure small masses. The previously described upper right breast MLO asymmetry at middle depth is less conspicuous on the current exam, and does not persist on MLO spot compression views, and likely represents overlapping breast tissue. There is an additional partially obscured, lobulated equal density asymmetry adjacent and anterior to the asymmetry mentioned above. Otherwise, is no evidence of suspicious masses, calcifications, or other abnormal findings in the right breast. US Breast Limited Right Targeted sonographic evaluation at the site of the mammographic asymmetry, at 11:00 2 cm from the nipple, demonstrates a 0.9 x 0.7 x 0.8 cm circumscribed anechoic avascular bilobed simple cyst. This corresponds to the partially obscured, lobulated mammographic asymmetry. Otherwise, there is no evidence of suspicious masses or other abnormal findings in the right breast. IMPRESSION Benign right breast bilobed simple cyst corresponding to the mammographic asymmetry. No evidence of malignancy in the right breast. BI-RADS ATLAS category (right): 2 - Benign MANAGEMENT Back on Schedule is recommended for right. The patient was entered into a reminder system with a target date for their next breast imaging exam. If this radiology report contains a blank impression section, it is an incomplete radiology report. Please contact the interpreting radiologist or applicable radiology division as soon as possible to obtain the completed interpretation. Ammon Bull MD Chary Silva IM BI PROCEDURES Final Result * [facility] Right Add Views Digital Mammo and Akil (12/06/2024 9:22 AM EDT) Anatomical Region Laterality Modality Breast Right Mammography Narrative 12/06/2024 1:35 PM EDT Huma Pereyra Exam Date: 12/06/24 [facility] [address] [place] [address], 5th floor [place], [place] [address] INDICATIONS Callback from screening for additional views of upper right breast middle depth MLO asymmetry. TECHNIQUE [facility] Right Add Views Digital Mammo and Akil US Breast Limited Right. R2 CAD were used in the interpretation of this study. COMPARISON Compared to: 10/21/2024 BERYL Bilateral Screening Digital Mammogram With Akil FINDINGS BERYL Right Add Views Digital Mammo and Akil The breasts are heterogeneously dense, which may obscure small masses. The previously described upper right breast MLO asymmetry at middle depth is less conspicuous on the current exam, and does not persist on MLO spot compression views, and likely represents overlapping breast tissue. There is an additional partially obscured, lobulated equal density asymmetry adjacent and anterior to the asymmetry mentioned above. Otherwise, is no evidence of suspicious masses, calcifications, or other abnormal findings in the right breast. US Breast Limited Right Targeted sonographic evaluation at the site of the mammographic asymmetry, at 11:00 2 cm from the nipple, demonstrates a 0.9 x 0.7 x 0.8 cm circumscribed anechoic avascular bilobed simple cyst. This corresponds to the partially obscured, lobulated mammographic asymmetry. Otherwise, there is no evidence of suspicious masses or other abnormal findings in the right breast. IMPRESSION Benign right breast bilobed simple cyst corresponding to the mammographic asymmetry. No evidence of malignancy in the right breast. BI-RADS ATLAS category (right): 2 - Benign MANAGEMENT Back on Schedule is recommended for right. The patient was entered into a reminder system with a target date for their next breast imaging exam. If this radiology report contains a blank impression section, it is an incomplete radiology report. Please contact the interpreting radiologist or applicable radiology division as soon as possible to obtain the completed interpretation. Ammon Bull MD Chary Silva [facility] BI PROCEDURES Final Result * Pap (09/08/2024 9:55 AM EDT) Specimen Adequacy Satisfactory for evaluation [facility] MANUAL 5 2:38 PM EDT [facility] Pathologist Cytology Interpretation Negative for intraepithelial lesion or malignancy. [facility] MANUAL 5 2:38 PM EDT [facility] at 1438 EDT Comment:This is the result o f a morphological screening test with an inherent possibility of a false negative interpretation. Wedding Decorator Statement This Pap test was examined by the [employer], [employer], [place], [place]. This Pap test was examined in accordance with the [facility] Cytopathology Laboratory written policy, which incorporates all CLIA mandates. Current screening guidelines can be found in [place]: A Cancer Journal for Clinicians 2020;70:321-346. Current ASCCP management guidelines for abnormal Pap tests are published in the Journal Lower Genital Tract Disease Volume 2020;24:102-131. [facility] MANUAL 5 2:38 PM EDT [facility] Clinical History Screening pap [facility] MANUAL 5 2:38 PM EDT [facility] Resulting Agency Case was signed out at [facility], Department of Pathology, [employer] 3 CLIA [id number] [facility] MANUAL 5 2:38 PM EDT [facility] Report Header Gynecologic Cytology Report Case: [id number] Authorizing Provider: Allie Loja NP Collected: 09/08/2024 0955 Ordering Location: [facility] Received: 09/08/[address] [place] [address] Obstetrics and Gynecology First Screen: Darrel Rosales Specimen: Screening ThinPrep Pap, Cervix/Endocervix 5 2:38 PM EDT [facility] Brushing Cervix uteri structure / Unknown Non-Blood Collection / Unknown 09/08/2024 9:55 AM EDT 09/08/2024 11:50 AM EDT us Allie Loja NP LAB PATHOLOGY/CYTOLOGY ORDERABL ES Final Result [facility] [address] [place] [address], from Last 3 Months or Most Recently Relevant to Health Maintenance Insurance [facility] HSNO/FREE CARE Care Teams Cutter Finisher Relationship Specialty Start Date End Date Chary Silva [address] [place] [id number] PCP - General Internal Medicine 06/16/24
--- OUTSIDE RECORDS SUMMARY | 2025-01-25 11:35 | XMS_ITS | Encounter Summary ---
Author Organization [employer] Address [address] [facility] 7t [place] [address] Care Team Providers Care Echocardiography Technologist Name Role Phone Chary Silva MD Primary Care Provider [phone] Encounter Details Date Type Department Care Team ([facility] st Contact Info) Description 10/31/2024 Orders Only [facility] [address] [place], [place] [phone] Provider, MD Minerva Social History Tobacco Use [...] Upcoming Encounters Date Type Department Care Team ([facility] st Contact Info) Description 03/06/2025 8:00 AM EST Office Visit [facility] ADULT DENT[facility] [address] [place] [address] Jesus Ladd documented as of this encounter [...] documented as of this encounter Care Teams Echocardiography Technologist Relationship Specialty Start Date End Date Chary Silva MD [address] [place] [address] PCP - General Internal Medicine 12/18/22 documented as of this encounter
--- OUTSIDE RECORDS SUMMARY | 2025-01-25 11:35 | XMS_ITS | Encounter Summary ---
Author Organization [employer] Address [address] [facility] 7t [place] [address] Care Team Providers Care Carbon Capture Power Plant Operator Name Role Phone Chary Silva MD Primary Care Provider [phone] Reason for Visit * Reason Onset Date Comments rs no show 03/24/2024 Encounter Details Date Type Department Care Team ([facility] st Contact Info) Description 03/24/2024 Telephone C [facility] ADULT DENTAL [address] [place], [place] [phone] Yaima Medina rs no show Social History [...] 03/06/2025 8:00 AM EST Office Visit [facility] AD[facility] [address] [place] [address] Jesus Ladd documented as of this encounter Visit Diagnoses Not on filedocumented in this encounter Additional Health Concerns Assessment Noted Time PHQ-9 Depression Total Score: 1 08/13/19 24 9:21 AM EDT documented as of this encounter Care Teams Carbon Capture Power Plant Operator Relationship Specialty Start Date End Date Chary Silva MD [address] [place] [address] PCP - General Internal Medicine 12/18/22 documented as of this encounter
== END 2025-01-25 10:04 | disposition home or self-care (01) ==
LOC: HO.CHCLDS 10:03
PROVIDERS: PCP Nurse Practitioner; Visit Provider Nurse Practitioner
DX: E89.0 Postprocedural hypothyroidism (principal)
CPT/HCPCS: 36415; 84443

== ENCOUNTER 2025-02-09 14:56 | Outpatient (REF) | payer MEDICAID, OTHER, SELFPAY ==
--- NOTE | 2025-02-09 | PFT_ITS ---
Flows: FEV1: 87 % of predicted at 2.71 L FVC: 105 % of predicted at 4.04 L FEV1/FVC: 67 % Bronchodilator response: Absent Volumes: Total lung capacity: 103 % of predicted at 5.66 L Residual volume: 136 % of predicted at 1.88 L Slow vital capacity: 92 % of predicted at 3.77 L Expiratory reserve volume: 65 % of predicted at 3.77 L Diffusion capacity: Normal Impression: Mild obstructive ventilatory defect with no bronchodilator response. Increased residual volume suggests air trapping. Decreased expiratory reserve volume suggests extrathoracic restriction likely secondary to abdominal obesity. MTDD
[2025-02-09 15:43] VITALS: PULSE 71
--- OUTSIDE RECORDS SUMMARY | 2025-02-09 20:24 | XMS_ITS | Clinical Summary ---
Author Organization [facility] Address [address] [place] [address] Care Team Providers Care Utility Worker Film Processing Name Role Phone Chary Silva Primary Care Provider [phone] Allergies No known active allergies Medications levonorgestreL [...] to obtain records form previous provider in [place]. Recurrent major depressive disorder, in partial remission 10/24/2022 Overview (02/05/2023): Last Assessment & Plan: For few years no, was doing well on meds. Restart sertraline 25mg And fu w PCP to titrate up if tolerated. Declines referral to counselor. She feels safe at home and will call back or come to [facility] prn. Thyroid cancer 10/24/2022 Overview (02/05/2023): Last Assessment & Plan: Michelle in [facility] 2020 Sp thyroidectomy, will need to bring info re previous PCP records. Restart levothyroxine as above Encounters Date Type Department Care Team Description 02/03/2025 Orders Only [facility] [place] [facility] [address] [place] [address] Opticianry Teacher: Alexa Lee NP 02/02/2025 Orders Only [facility] [place] [facility] [address] [place] [address] Opticianry Teacher: Truong Belcher MD 12/07/2024 Results Follow-Up [facility] Obstetrics and Gynecology [address] [place] [address] Opticianry Teacher: Allie Singh NP from Last 3 Months [...] Info) Description 10/24/2025 8:00 AM EDT Follow-Up [facility] [place] [facility] [address] [place] [address] Opticianry Teacher: Alexa Lee, GERALDINE [address] [place] [address] Health Maintenance Due Date Last Done Comments [...] Screening 03/23/2024 Depression Screening and Follow-Up 03/23/2024 [employer] Drivers of Health Gloria ual Screening 03/23/2024 Influenza Vaccine (#1) 2024 12/18/2022 Diabetes Screening 10/24/2025 10/24/2022 Mammogram 12/06/2026 12/06/2024, 11/21, 10/21/2024 Cervical Cancer Screening 09/09/2027 Pap Smear 09/09/2027 09/08/2024 Procedures * Due to [place] [employer] law, this organization might not be sharing negative HIV tests. Procedure Name Priority Date/Time Associated Diagnosis Comments LAB - SCANNED Routine 02/02/2025 3:33 PM EST US BREAST LIMITED RIGHT Routine 12/06/2024 9:51 AM EDT Breast asymmetry BERYL RIGHT ADD VIEWS DIGITAL MAMMO AND AKIL Routine 12/06/2024 9:22 AM EDT Breast asymmetry PAP Routine 09/08/2024 9:55 AM EDT Cervical cancer screening from Last 3 Months or Most Recently Relevant to Health Maintenance Results * Due to [place] [employer] law, this organization might not be sharing negative HIV tests. * LAB - SCANNED (02/02/2025 3:33 PM EST) us Unknown Provider MD LAB HISTORICAL RESULTS Final Result * US Breast Limited Right (12/06/2024 9:51 AM EDT) Anatomical Region Laterality Modality Breast Right Ultrasound Narrative 12/06/2024 1:35 PM EDT Huma Pereyra Exam Date: 12/06/24 [facility] [address] [facility], 5th floor [place], [place] [address] INDICATIONS Callback from screening for additional views of upper right breast middle depth MLO asymmetry. TECHNIQUE [facility] Right Add Views Digital Mammo and Akil US Breast Limited Right. R2 CAD were used in the interpretation of this study. COMPARISON Compared to: 10/21/2024 [facility] Bilateral Screening Digital Mammogram With Akil FINDINGS [facility] Right Add Views Digital Mammo and Akil [...] Silva IM BI PROCEDURES Final Result * [facility] Right Add Views Digital Mammo and Akil (12/06/2024 9:22 AM EDT) Anatomical Region Laterality Modality Breast Right Mammography Narrative 12/06/2024 1:35 PM EDT Huma Pereyra Exam Date: 12/06/24 [facility] [address] [place] [address], 5th floor [facility] Building [place], [place] [address] INDICATIONS Callback from screening for additional views of upper right breast middle depth MLO asymmetry. TECHNIQUE BERYL Right Add Views Digital Mammo and Akil US Breast Limited Right. R2 CAD were used in the interpretation of this study. COMPARISON Compared to: 10/21/2024 [facility] Bilateral Screening Digital Mammogram With Akil FINDINGS [...] Silva IM BI PROCEDURES Final Result * Pap (09/08/2024 9:55 AM EDT) Specimen Adequacy Satisfactory for evaluation [facility] MANUAL 5 2:38 PM EDT [employer] [facility] Pathologist Cytology Interpretation Negative for intraepithelial lesion or malignancy. [facility] MANUAL 5 2:38 PM EDT [employer] [facility] at 1438 EDT Comment:This is the result o f a morphological screening test with an inherent possibility of a false negative interpretation. Service Line Bus Cleaner Statement This Pap test was examined by the [facility], [place], [place], [place]. This Pap test was examined in accordance with the [facility] Cytopathology Laboratory written policy, which incorporates all CLIA mandates. Current screening guidelines can be found in [place]: A Cancer Journal for Clinicians 2020;70:321-346. Current ASCCP management guidelines for abnormal Pap tests are published in the Journal Lower Genital Tract Disease Volume 2020;24:102-131. [facility] MANUAL 5 2:38 PM EDT [employer] System [facility] ANATOMIC PATHOLOGY LABORATORY Clinical History Screening pap [facility] MANUAL 5 2:38 PM EDT [facility] Resulting Agency Case was signed out at [facility], Department of Pathology, Biotech 3 [facility] [id number] [facility] MANUAL 5 2:38 PM EDT [facility] Report Header Gynecologic Cytology Report Case: [id number] Authorizing Provider: Allie Loja NP Collected: 09/08/2024 0955 Ordering Location: [facility] Received: 09/08/2024 [address] [employer] [facility] Obstetrics and Gynecology First Screen: Darrel Rosales Specimen: Screening ThinPrep Pap, Cervix/Endocervix 5 2:38 PM EDT [employer] [facility] Brushing Cervix uteri structure / Unknown Non-Blood Collection / Unknown 09/08/2024 9:55 AM EDT 09/08/2024 11:50 AM EDT us Allie Loja NP LAB PATHOLOGY/CYTOLOGY ORDERABL ES Final Result [facility] [address] [place] [id number], from Last 3 Months or Most Recently Relevant to Health Maintenance Insurance [facility] HSNO/FREE CARE Care Teams Utility Worker Film Processing Relationship Specialty Start Date End Date Chary Silva [address] [place] [address] PCP - General Internal Medicine 06/16/24
--- OUTSIDE RECORDS SUMMARY | 2025-02-09 20:24 | XMS_ITS | Encounter Summary ---
Author Organization [employer] Address [address] [facility] 7t [place] [address] Care Team Providers Care Bail Bond Agent Name Role Phone Chary Silva MD Primary Care Provider [phone] Reason for Visit * Reason Onset Date Comments Referral 03/31/2023 Encounter Details Date Type Department Care Team (Late st Contact Info) Description 03/31/2023 Telephone [facility] [address] [place] [address] Chary Silva MD [address] [place], [place] [phone] Referral Social History Tobacco Use Types Packs/Day [...] that her insurance is only accepted at [facility]. Patient understood and didn't have any other questions. * Telephone Encounter - Demetri Solares - 03/31/2023 11:00 AM EST Tc from patient calling in regards to the referral for LEGAL RECORDS CLERK states would like the referral to be sent to a closer location to the patients residence documented in this encounter Plan of Treatment Upcoming Encounters Date Type Department Care Team (Late st Contact Info) Description 03/06/2025 8:00 AM EST Office Visit [facility] ADULT DENT[facility] [address] [place] [address] Jesus Ladd documented as of this encounter Visit Diagnoses Not on filedocumented in this encounter Additional Health Concerns Assessment Noted Time PHQ-9 Depression Total Score: 16 12/18/2 023 9:49 AM EDT documented as of this encounter Care Teams Bail Bond Agent Relationship Specialty Start Date End Date Chary Silva MD [address] [place] [address] PCP - General Internal Medicine 12/18/22 documented as of this encounter
--- OUTSIDE RECORDS SUMMARY | 2025-02-09 20:24 | XMS_ITS | Encounter Summary ---
Author Organization [employer] Address [address] [facility] 7t [place] [address] Care Team Providers Care Pulmonary Physical Therapist Name Role Phone Chary Silva MD Primary Care Provider [phone] Reason for Visit * Reason Onset Date Comments rs no show 03/24/2024 Encounter Details Date Type Department Care Team ([facility] st Contact Info) Description 03/24/2024 Telephone C [facility] ADULT DENTAL [address] [place], [place] [phone] Yaima Medina rs no show Social History [...] 03/06/2025 8:00 AM EST Office Visit [facility] ADULT DENT[facility] [address] [place] [address] Jesus Ladd documented as of this encounter Visit Diagnoses Not on filedocumented in this encounter Additional Health Concerns Assessment Noted Time PHQ-9 Depression Total Score: 1 08/13/19 24 9:21 AM EDT documented as of this encounter Care Teams Pulmonary Physical Therapist Relationship Specialty Start Date End Date Chary Silva MD [address] [place] [address] PCP - General Internal Medicine 12/18/22 documented as of this encounter
--- OUTSIDE RECORDS SUMMARY | 2025-02-09 20:24 | XMS_ITS | Clinical Summary ---
Author Organization [email or web address] Address [address] [place] [address] [address] [place] [address] Care Team Providers Care Pump Servicer Helper Name Role Phone Chary Silva MD Primary Care Provider Allergies No known active allergies Medications cholecalciferol [...] to obtain records form previous provider in [place]. Thyroid cancer (CMS/HCC) 10/24/2022 Assessment & Plan [...] and will call back or come to [facility] prn. Screening mammogram for breast cancer [...] Encounters Date Type Department Care Team Description 01/25/2025 Orders Only GENERIC EXTERNAL DATA DEPARTMENT Provider, Generic External Data 11/24/2024 9:00 AM EDT Office Visit [facility] [address] [place] [address] Chary Silva MD Chronic right shoulder pain (Primary Dx); Childhood asthma, mild intermittent, uncomplicated; Dietary counseling; Exercise counseling; Vitamin D deficiency; Thyroid cancer (CMS/HCC) 11/24/2024 Patient Outreach [facility] [address] [place] [address] Chary Silva MD Care Coordination (C3 CM-[facility]W Millicent Sotelo telephone call); Bronchitis 11/24/2024 Travel 11/22/2024 Telephone [facility] [address] [place] [address] Chary Silva MD Chart Prep from Last 3 Months Immunizations Immunization Administration [...] Description 03/06/2025 8:00 AM EST Office Visit [facility] [address] [place] [address] Jesus Ladd Health Maintenance Due Date Last [...] 09/28/2002 HPV/Cotest 09/28/2013 COVID-19 Vaccine ( - 2024-2 6 season) 2024 Influenza Vaccine (#1) 2024 12/18/2022 [...] Procedure Name Priority Date/Time Associated Diagnosis Comments TSH W/REFLEX TO FT4 Routine 01/25/2025 1 0:09 AM EST XR CERVICAL SPINE 3V Routine 11/24/2024 9:28 AM EDT Chronic right shoulder pain XR SHOULDER 2+ VIEWS RIGHT Routine 11/24/2024 9:21 AM EDT Chronic right shoulder pain HM MAMMOGRAPHY Routine 10/21/2024 10:40 AM EDT HM PAP/HPV Routine 09/15/2024 PROPHYLAXIS - ADULT Routine 09/01/2024 8 :00 AM EDT PERIODIC ORAL EVALUATION - ESTABLISHED PATIENT Routine 09/01/2024 8:00 AM EDT BITEWING - SINGLE RADIOGRAPHIC IMAGE Routine 07/26/2024 1:00 PM EDT INTRAORAL - COMPLETE SERIES OF RADIOGRAPHIC IMAGES Routine 03/02/2024 8:00 AM EST from Last 3 Months or Most Recently Relevant to Health Maintenance Results * TSH with Reflex to Free T4 (01/25/2025 10:09 AM EST) TSH reflex Free T4 2.94 0.32 - 4.0 uIU/mL [facility] 01/25/2025 10:0 9 AM EST 01/25/2025 2:12 PM EST us Generic External Data Provider LAB BLOOD ORDERAB LES Final Result Performing Organization Address City/State/[facility] Co de Phone Number [facility] [address] [place] [phone] * XR CERVICAL SPINE 3V (11/24/2024 9:28 AM EDT) Anatomical Region Laterality Modality Abdomen Radiographic Greta ging 11/24/2024 9:28 AM EDT Narrative 11/24/2024 10:52 AM EDT [address] [address] XRay Report Signed Patient: Huma Jones MR# : [id number] : 1985 Acct:[id number] Age/Sex: 39 / F ADM Date: 11/24/24 Loc: HO.HHCX Attending Dr: Chary Silva MD Ordering Physician: Chary Silva MD Date of Service: 11/24/24 Procedure(s): XR cervical spine 3V Accession Number(s): [id number] cc: Chary Silva MD Reason for Exam: [...] Titi Aquino MD 11/24/2024 10:49 AM EDT RP Dictated By: Titi Aquino MD Signed By: <Electronically signed by Titi Aquino MD in OV> 11/24/24 1049 DD/ 7 TD/TT: 11/24/249[address] Charge Loader: Procedure Note Donotuseinterpreter, Image - 11/24/[address] [address] XRay Report Signed Patient: Rusty Jones# : [id number] : 1985Acct:[id number] Age/Sex: 39 / FADM Date: 11/24/24 Loc: HO.HHCX Attending Dr: Chary Silva MD Ordering Physician: Chary Silva MD Date of Service: 11/24/24 Procedure(s): XR cervical spine 3V Accession Number(s): [id number] cc: Chary Silva MD Reason for Exam: [...] Titi Aquino MD 11/24/2024 10:49 AM EDT RP Dictated By: Titi Aquino MD Signed By: <Electronically signed by Titi Aquino MD in OV> 11/24/24 1049 DD/ 7 TD/TT: 11/24/24929 Charge Loader: us Chary Silva MD IMG XR PROCEDURES Final Resul t * XR Shoulder 2+ Views Right (11/24/2024 9:21 AM EDT) Anatomical Region Laterality Modality Upper Extremities, Shoulder Right Radi ographic Imaging 11/24/2024 9:21 AM EDT Narrative 11/24/2024 10:51 [place] [address] XRay Report Signed Patient: Huma Jones MR# : [id number] : 1985 Acct:[id number] Age/Sex: 39 / F ADM Date: 11/24/24 Loc: HO.HHCX Attending Dr: Chary Silva MD Ordering Physician: Chary Silva MD Date of Service: 11/24/24 Procedure(s): XR shoulder RT min 2V Accession Number(s): [id number] cc: Chary Silva MD Reason for Exam: [...] Titi Aquino MD 11/24/2024 10:48 AM EDT RP Dictated By: Titi Aquino MD Signed By: <Electronically signed by Titi Aquino MD in OV> 11/24/241047 DD/ 0 TD/TT: 11/24/24929 Charge Loader: Procedure Note Donotuseinterpreter, Image - 11/24/[address] [address] XRay Report Signed Patient: Corazon JonesR# : [id number] : 1985Acct:[id number] Age/Sex: 39 / FADM Date: 11/24/24 Loc: HO.HHCX Attending Dr: Chary Silva MD Ordering Physician: Chary Silva MD Date of Service: 11/24/24 Procedure(s): XR shoulder RT min 2V Accession Number(s): [id number] cc: Chary Silva MD Reason for Exam: [...] Titi Aquino MD 11/24/2024 10:48 AM EDT RP Dictated By: Titi Aquino MD Signed By: <Electronically signed by Titi Aquino MD in OV> 11/24/248 DD/ 0 TD/TT: 11/24/24929 Charge Loader: us Chary Silva MD IMG XR PROCEDURES Final Resul t * Hm Mammography (10/21/2024 10:40 AM EDT) Anatomical Region Laterality Modality Other us Historical Provider HEALTH MAINTENANCE Final Result * PAP/HPV (09/15/2024) Pap Smear 1. NILM 1. NILM Chary Silva MD HEALTH MAINTENANCE Final Resu lt from Last 3 Months or Most Recently Relevant to Health Maintenance Insurance [facility] FULL DENTAL-[facility] ADULT DENTAL - HSN FULL (MEDICAID) Care Teams Pump Servicer Helper Relationship Specialty Start Date End Date Chary Silva MD [address] [place] [phone] PCP - General Internal Medicine 12/18/22
--- OUTSIDE RECORDS SUMMARY | 2025-02-09 20:24 | XMS_ITS | Encounter Summary ---
Author Organization [facility] Address [address] [place] [address] Care Team Providers Care Binder Cutter Name Role Phone ShiraAlexisChary Cathie Primary Care Provider [phone] Encounter Details Date Type Department Care Team (Late st Contact Info) Description 02/02/2025 Orders Only [facility] [address] [place] [address] Tile Layer Drainage: Jennifer Bay Provider, MD [place] [address] [place] [address] Social History Tobacco Use Types Packs/Day Years [...] Info) Description 10/24/2025 8:00 AM EDT Follow-Up [facility] [address] [place] [address] Tile Layer Drainage: Alexa Lee NP [address] [place] [address] documented as of this encounter Procedures * Due to [place] Dimmi law, this organization might not be sharing negative HIV tests. Procedure Name Priority Date/Time Associated Diagnosis Comments LAB - SCANNED Routine 02/02/2025 3:33 PM EST documented in this encounter Results * Due to [place] Dimmi law, this organization might not be sharing negative HIV tests. * LAB - SCANNED (02/02/2025 3:33 PM EST) us Unknown Provider LAB HISTORICAL RESULTS Final Result documented in this encounter Visit Diagnoses Not on filedocumented in this encounter Care Teams Binder Cutter Relationship Specialty Start Date End Date Chary Silva [address] [place] [address] PCP - General Internal Medicine 06/16/24 documented as of this encounter
--- OUTSIDE RECORDS SUMMARY | 2025-02-09 20:24 | XMS_ITS | Encounter Summary ---
Author Organization [facility] Address [address] [place] [address] Care Team Providers Care Bobbin Winder Tender Name Role Phone Chary Silva Primary Care Provider [phone] Encounter Details Date Type Department Care Team ([facility] Contact Info) Description 12/07/2024 Results Follow-Up [facility] [address] [place] [address] Trader: Allie Singh NP [address] [place] [address] Social History Tobacco Use Types Packs/Day Years [...] Info) Description 10/24/2025 8:00 AM EDT Follow-Up [facility] [address] [place] [address] Trader: Alexa Lee NP [address] [place] [phone] documented as of this encounter Visit Diagnoses Not on filedocumented in this encounter Care Teams Bobbin Winder Tender Relationship Specialty Start Date End Date Chary Silva [address] [place] [address] PCP - General Internal Medicine 06/16/24 documented as of this encounter
--- OUTSIDE RECORDS SUMMARY | 2025-02-09 20:24 | XMS_ITS | Encounter Summary ---
Author Organization [employer] Address [address] [facility] [address] [place] [address] Care Team Providers Care Wax Specialist Name Role Phone Chary Silva MD Primary Care Provider [phone] Encounter Details Date Type Department Care Team (Late st Contact Info) Description 09/15/2024 Orders Only [facility] [address] [place], [place] [phone] Provider, MD Minerva Social History Tobacco Use [...] Upcoming Encounters Date Type Department Care Team ([facility] st Contact Info) Description 03/06/2025 8:00 AM EST Office Visit [facility] [address] [place] [address] Jesus Ladd documented as of this encounter Procedures Procedure Name Priority Date/Time Associated Diagnosis Comments CYTOLOGY, NON-LCSW Routine 09/08/2024 11:30 AM EDT documented in this encounter Results * Cytology, Non-LCSW (09/08/2024 11:30 AM EDT) us Historical Provider LAB CYTOLOGY ORDERABLES F inal Result documented in this encounter Visit Diagnoses Not on filedocumented in this encounter Additional Health Concerns Assessment Noted Time PHQ-9 Depression Total Score: 1 08/13/19 24 9:21 AM EDT documented as of this encounter Care Teams Wax Specialist Relationship Specialty Start Date End Date Chary Silva MD [address] [place] [address] PCP - General Internal Medicine 12/18/22 documented as of this encounter
--- OUTSIDE RECORDS SUMMARY | 2025-02-09 20:24 | XMS_ITS | Encounter Summary ---
Author Organization [employer] Address [address] [facility] [address] [place] [address] Care Team Providers Care Drafting Layout Worker Name Role Phone Chary Silva MD Primary Care Provider [phone] Encounter Details Date Type Department Care Team ([facility] st Contact Info) Description 10/31/2024 Orders Only [facility] [address] [place], [place] [phone] Provider, MD Minerva Social History Tobacco Use [...] Upcoming Encounters Date Type Department Care Team ([facility] st Contact Info) Description 03/06/2025 8:00 AM EST Office Visit [facility] [address] [place] [address] Jesus Ladd documented as of this encounter [...] documented as of this encounter Care Teams Drafting Layout Worker Relationship Specialty Start Date End Date Chary Silva MD [address] [place] [address] PCP - General Internal Medicine 12/18/22 documented as of this encounter
== END 2025-02-09 14:57 | disposition home or self-care (01) ==
LOC: HO.RESP 14:56
PROVIDERS: PCP Pediatrics; Visit Provider Pediatrics
DX: J45.20 Mild intermittent asthma, uncomplicated (principal)
CPT/HCPCS: 94060; 94640; 94727; 94729

== ENCOUNTER → 2025-02-09 14:58 | Outpatient (BNV) | payer MEDICAID, SELFPAY | PROVIDERS: PCP Pediatrics; Visit Provider Internal Medicine Pulmonary Disease | DX: J98.4 Other disorders of lung (principal) | CPT/HCPCS: 94060; 94727; 94729 ==